=== PATIENT | male | born 1950 | race Caucasian/White ===

== ENCOUNTER 2017-12-28 10:56 | Outpatient (CLI) | payer OTHER, MEDICARE ==
--- NOTE | 2017-12-28 13:36 | RAD ---
KUB: INDICATION: History of nephrolithiasis. COMPARISON: Prior CT of the abdomen and pelvis dated 09/18/17. FINDINGS: There is a 4 mm stone overlying the mid aspect of the left kidney. There are tiny 1-2 mm stones over lying the mid to superior pole of the left kidney. There are expected 3 mm stones overlying the supe rior pole of the right kidney. No suspicious calcifications seen along the affected course of the re nal collecting systems. There are phleboliths within the lower pelvis. The bowel gas pattern is alicia bstructed. There is a mild amount of retained stool. There is scattered degenerative change. IMPRESSION: 1. Bilateral nephrolithiasis. There are 1-2 mm nonobstructing calculi involving the mid to superior aspect of the left kidney which appear new from the comparison CT. The other additional suspected n onobstructing calculi are likely stable to the CT exam. 2. Mild amount of retained stool. POS: [facility]
== END 2017-12-28 10:57 | disposition home or self-care (01) ==
LOC: RAD 10:56
PROVIDERS: ATTEND Urology
DX: N20.0 Calculus of kidney (principal); R19.5 Other fecal abnormalities
CPT/HCPCS: 74018

== ENCOUNTER 2018-04-25 19:20 | Emergency (ER) | payer OTHER, MEDICARE ==
[~2018-04-25 19:20] MED LIST: ISOVUE-370 76%-LOCM 1 ML ONE
[2018-04-25 20:00] LABS: #Eosinphils 0.1 thou/uL (0.0-0.7); #Monocytes 0.5 thou/uL (0.11-0.59); #Neutrophils 2.4 thou/uL (1.40-6.50); %Basophils 0.5 % (0.0-1.0); %Eosinophils 2.9 % (0.0-10.0); %Lymphocytes 38.6 % (21.0-51.0); %Monocytes 10.1 % (0.0-10.0); %Neutrophils 47.8 % (42.0-75.0); Hemoglobin 12.8 g/dL (14.0-18.0); Mean Corpuscular Volume 91.6 fL (78.0-98.0); Mean Platelet Volume 6.8 fL (7.4-10.4); Platelet Count 165 thou/uL (130-400); RBC Distribution Width 12.9 % (11.5-14.5); White Blood Cell (WBC) Count 5.1 thou/uL (4.8-10.8)
[2018-04-25 20:17] LABS: ALT (SGPT) 34 U/L (8-55); AST (SGOT) 32 U/L (5-34); Albumin 4.3 g/dL (3.4-4.8); Alkaline Phosphatase 70 U/L (40-150); Anion Gap 17 mmol/L (10-20); BUN (Urea Nitrogen) 23 mg/dL (8.4-25.7); Bilirubin, Total 0.5 mg/dL (0.2-1.2); CK (CPK) 367 U/L (30-200); Calc. Creatinine Clearance 0 mL/min (70-130); Calcium 9.2 mg/dL (7.8-10.44); Carbon Dioxide 19 mmol/L (23-31); Chloride 107 mmol/L (98-107); Estimated GFR-MDRD 37; Globulin 3.3 g/dL (2.4-3.5); Glucose 100 mg/dL (80-115); Lipase 47 U/L (8-78); Potassium 4.1 mmol/L (3.5-5.1); Protein, Total 7.6 g/dL (5.8-8.1); Sodium 139 mmol/L (136-145)
[2018-04-25 20:40] LABS: Bilirubin Negative (Negative); Blood, Urine Negative (Negative); Clarity CLEAR (Clear); Glucose, Urine (Dipstick) Negative (Negative); Leukocyte Negative (Negative); Nitrite Negative (Negative); Protein, Urine (Dipstick) Negative (Neg-Trace); Specific Gravity, Urine 1.023 (1.002-1.036)
[2018-04-25] MEDS ORDERED: Ketorolac Tromethamine 30 MG/ML VIAL ONE (21:38)
--- NOTE | 2018-04-25 23:05 | CT ---
CT ABDOMEN AND PELVIS WITH CONTRAST: CLINICAL HISTORY: Abdominal pain. COMPARISON: 09/18/2017 FINDINGS: There are atrophic kidneys bilaterally, with associated punctate calcifications, similar appearing. No adrenal mass. The liver and spleen are grossly unremarkable. No peripancreatic inflammation. Th ere is moderate retained fecal material of the colon. Colonic diverticulosis is present. The unopac ified bowel is otherwise limited in assessment. There is no pneumoperitoneum or ascites. Scattered vascular calcification is present. There are patchy subpleural opacities of the lungs bilaterally, i ncompletely evaluated. Moderate distention of the unopacified urinary bladder is seen. Stable calci fied phleboliths are present at the posterior aspect of the pelvis. There is osseous degenerative ch regine. IMPRESSION: 1. Constipation and colonic diverticulosis. 2. Atrophic kidneys bilaterally with associated multifocal punctate calcification, similar appearing . 3. Additional details are described above. POS: [facility]
== END 2018-04-26 00:31 | disposition home or self-care (01) ==
LOC: ERS 19:20
DX: R10.31 Right lower quadrant pain (principal); Z71.6 Tobacco abuse counseling; I10 Essential (primary) hypertension; F17.220 Nicotine dependence, chewing tobacco, uncomplicated; Z79.899 Other long term (current) drug therapy; Z79.82 Long term (current) use of aspirin
CPT/HCPCS: 74177; 80053; 81003; 82550; 83690; 85025; 96361; 96374; 99406; J1885

== ENCOUNTER 2018-12-10 09:01 | Outpatient (CLI) | payer MEDICARE, OTHER ==
--- NOTE | 2018-12-10 12:56 | MRI ---
MRI PELVIS WITH AND WITHOUT CONTRAST UTILIZING A PROSTATE CANCER SPECIFIC PROTOCOL: COMPARISON: No comparisons are available. TECHNIQUE: Multiplanar, multisequence MR images were obtained of the pelvis utilizing IV contrast with 17 mL of MultiHance. EXAM INTERPRETATION: The exam was interpreted on a separate in vivo 3D work station for a multiparametric evaluation. FINDINGS: The prostate gland measures 6.6 x 4.5 x 5.1 cm, giving an estimated prostatic volume of 73.91 mL. Th ere is a prominent amount of retained bowel gas that could not be evacuated from the rectal vault franc t produces some susceptibility artifact on the posterior aspect of the prostate gland. This limits i mage detail on the ADC and DWI images. No definite area of restricted diffusion is evident. On the T2 weighted images there is heterogeneous but predominantly hypointense, feathery signal abnormality seen within the peripheral zone of the prostate gland. No suspicious abnormality is seen within the central gland. The bladder is largely decompressed. The seminal vesicles appear within normal limit s. No pathologically enlarged lymph nodes are evident. There is no evidence to suggest neurovascula r invasion. There are fatty inguinal hernias bilaterally. No bone marrow signal abnormality is evid ent. IMPRESSION: PI-RADS category 2-Low (clinically significant cancer is unlikely to be present). POS: [facility]
[2018-12-10] MEDS ORDERED: Gadobenate Dimeglumine 529 MG/1 ML (20ML VIAL) ONE (13:47)
== END 2018-12-10 09:02 | disposition home or self-care (01) ==
LOC: TBSIIMAG 09:01
PROVIDERS: ATTEND Radiology Body Imaging
DX: R97.20 Elevated prostate specific antigen [PSA] (principal)
CPT/HCPCS: 72197; 82565; A9577

== ENCOUNTER 2018-12-13 10:32 | Outpatient (CLI) | payer MEDICARE, OTHER ==
--- NOTE | 2018-12-14 11:06 | ULT ---
ULTRASOUND PROSTATE: 12/13/2018 HISTORY: Elevated PSA. MRI of the prostate was already performed on 12/10/2018. A PI-RADS category 2 was giv en for that MRI. The purpose of this ultrasound is to obtain prostate volume. FINDINGS: The prostate gland measures approximately 3.7 x 5.5 x 2.6 cm, yielding an estimated volume of 27 mL. IMPRESSION: Prostate gland estimated volume of approximately 27 mL. POS: [facility]
== END 2018-12-13 10:33 | disposition home or self-care (01) ==
LOC: SCSULT 10:32
PROVIDERS: ATTEND Radiology Body Imaging
DX: C44.329 Squamous cell carcinoma of skin of other parts of face (principal); C30.0 Malignant neoplasm of nasal cavity; Z86.2 Personal history of diseases of the blood and blood-forming organs and certain disorders involving the immune mechanism
CPT/HCPCS: 76872

== ENCOUNTER 2019-02-10 08:57 | Day surgery (SDC) | payer MEDICARE, OTHER ==
[2019-02-09 12:53] VITALS: BMI 27.8
[2019-02-10] MEDS ORDERED: Ondansetron PF 4 MG/2 ML Vial ONE (09:52)
[2019-02-10] MEDS ORDERED: PHENYLEPHRINE-NS 100 MCG/ML 10 ML SYRINGE ONE (09:52)
[2019-02-10] MEDS ORDERED: Dexamethasone 20 MG/5 ML VIAL ONE (09:52)
[2019-02-10] MEDS ORDERED: Lidocaine 1% PF 5 ML VIAL ONE (09:52)
[2019-02-10] MEDS ORDERED: PROPOFOL 200 MG/20 ML VIAL ONE (09:52)
[2019-02-10] MEDS ORDERED: Oxymetazoline HCl 0.05% ( 15 ML ) ONE (10:14)
[2019-02-10] MEDS ORDERED: Silver Nitrate Application 1 EACH ONE ×2 (11:42→11:43)
[2019-02-10] MEDS ORDERED: Lidocaine 1% w/Epinephrine 1:100K 20 ML VIAL ONE (11:42)
[2019-02-10] MEDS ORDERED: Fentanyl 100 MCG/2 ML VIAL ONE (11:46)
--- NOTE | 2019-02-11 13:57 | OP ---
DATE OF PROCEDURE: 02/10/2019 PREOPERATIVE DIAGNOSES: 1. Epistaxis. 2. Intranasal adhesions. 3. Malignant lesion, left catholic. POSTOPERATIVE DIAGNOSES: 1. Epistaxis. 2. Intranasal adhesions. 3. Malignant lesion, left catholic. PROCEDURES PERFORMED: 1. Nasal endoscopy with control of bleeding. 2. Bilateral nasal endoscopy with lysis of adhesion. 3. Excision of left malignant facial skin lesion on the catholic measuring 4 cm with complex closure. DESCRIPTION OF PROCEDURE: After consent was obtained, the patient identified and brought to the operating room and placed on the operative table in supine position. Laryngeal mask anesthesia was obtained. The patient was positioned for surgery. The face was prepped and draped as was the nose for nasal surgery and facial surgery. We first turned our attention to the skin lesion of left catholic. An elliptical incision was made in the natural skin crease along the line of facial expression. The incision was carried out through the skin and subcutaneous tissues down to the SMAS layer with taking care to protect the facial nerve. Elliptical incision was made, and the specimen was sent for frozen section analysis. We were waited for frozen section analysis. We turned attention to the nose, where we underwent nasal endoscopy and multiple bleeding points were cauterized using silver nitrate and bipolar cautery. Large adhesions were taken down between the middle turbinate and the septum and the middle turbinate and inferior turbinates of the right, and inferior turbinate and septum of left. Absorbable packing was placed and local sponges were placed to keep it away from postop adhesions. We then obtained clear margins with our biopsy and proceeded with closure. The wound was undermined medially and laterally. The skin was advanced into the defect and closed in layers 5-0 Monocryl, reapproximating deep tissues and 6-0 Prolene for the skin. Sterile dressing applied over Steri-Strips. The patient was awakened, taken to recovery room in stable condition prior to discharge home. Job ID: [id number]
--- NOTE | 2019-03-04 05:50 | PQF ---
[facility] POST DISCHARGE CLINICAL DOCUMENTATION IMPROVEMENT CLARIFICATION FORM y Todays Date: 03/04/19 y Patients Name LEON ALEXANDER y y Admit Date 02/10/19 y Disch Date 02/10/19 Panel Instrument Repairer Name Farhat Lam Email: [email or web address] Cell: [phone] To be completed by Panel Instrument Repairer: Present Clinical Indicators - Signs / Symptoms Results and Location in Medical Record [ ] Documentation of: [ ] [ ] Documentation of: [ ] [ ] Documentation of: [ ] [ ] Documentation of: [ ] [ ] Risks [ ] [ ] [ ] Treatment [ ] Dermal fibrosis, chroni inflammation ans solar elastosis skin of left cheek Query for size of margins of excised lesion [ ] [ ] To be completed by Physician: DIEUDONNE ASHLEY The documentation in this patients record requires clarification to ensure coding compliance and accuracy. Check the appropriate box and include in your discharge summary. [ ] [ ] [ ] [ ] Please check this box if this does not apply to this patient [ ] Unable to determine [ ] Other diagnosis: Review the following information and exercise your independent professional judgment in responding to the clarification. Based upon the clinical findings, risk factors, and treatment, please clarify if you are treating one of the above probable or suspected diagnoses. Physician Signature: Date Time MTDD
== END 2019-02-10 14:52 | disposition home or self-care (01) ==
LOC: SDC 08:57
PROVIDERS: ATTEND Specialist
PROC: 093K8ZZ Control Bleeding in Nasal Mucosa and Soft Tissue, Via Natural or Artificial Opening Endoscopic (ICD-10-PCS; principal; 2019-02-10)
PROC: 0HB1XZZ Excision of Face Skin, External Approach (ICD-10-PCS; 2019-02-10)
DX: C76.0 Malignant neoplasm of head, face and neck (principal); R04.0 Epistaxis; Q61.9 Cystic kidney disease, unspecified; F17.220 Nicotine dependence, chewing tobacco, uncomplicated; Z79.82 Long term (current) use of aspirin; Z79.899 Other long term (current) drug therapy; Z88.8 Allergy status to other drugs, medicaments and biological substances; Z85.828 Personal history of other malignant neoplasm of skin; Z98.890 Other specified postprocedural states
CPT/HCPCS: 88305; 88331; 88332; J1100; J2001; J2405; J2704; J3010

== ENCOUNTER 2019-08-26 21:35 | Emergency (ER) | payer MEDICARE, OTHER | END 2019-08-27 00:04 | disposition home or self-care (01) | LOC: ERS 21:35 | DX: R04.0 Epistaxis (principal); I10 Essential (primary) hypertension; F17.220 Nicotine dependence, chewing tobacco, uncomplicated; Z79.899 Other long term (current) drug therapy; Z71.6 Tobacco abuse counseling; Z87.442 Personal history of urinary calculi; Z79.82 Long term (current) use of aspirin | CPT/HCPCS: 99406 ==

== ENCOUNTER 2019-12-06 12:34 | Outpatient (CLI) | payer MEDICARE, OTHER ==
--- NOTE | 2019-12-06 13:39 | ULT ---
BILATERAL RENAL ULTRASOUND: HISTORY: Parapelvic cyst. FINDINGS: The right kidney measures 9 cm in length and the left kidney measures 10 cm in length. Multiple left -sided parapelvic cysts are seen measuring up to 3 x 2.6 x 2.2 cm in the inferior aspect (which has t hin internal septation). The prevoid bladder volume is 278 cc. The urinary bladder is grossly unremarkable. No hydronephrosi s is seen on either side. IMPRESSION: Left parapelvic cysts. POS: [facility]
== END 2019-12-06 12:35 | disposition home or self-care (01) ==
LOC: BICULT 12:34
PROVIDERS: ATTEND Urology
DX: N28.1 Cyst of kidney, acquired (principal)
CPT/HCPCS: 76770

== ENCOUNTER 2020-03-26 18:01 | Observation (INO) | payer MEDICARE, OTHER ==
[2020-03-26 18:37] LABS: #Eosinphils 0.1 thou/uL (0.0-0.7); #Lymphocytes 1.4 thou/uL (1.20-3.40); #Monocytes 0.4 thou/uL (0.11-0.59); #Neutrophils 3.6 thou/uL (1.40-6.50); %Basophils 0.6 % (0.0-1.0); %Eosinophils 2.1 % (0.0-10.0); %Lymphocytes 24.5 % (21.0-51.0); %Monocytes 7.5 % (0.0-10.0); %Neutrophils 65.3 % (42.0-75.0); Hemoglobin 10.2 g/dL (14.0-18.0); Mean Corpuscular HGB CONC 33.4 g/dL (32.0-36.0); Mean Corpuscular Hemoglobin 31.4 pg (27.0-31.0); Mean Corpuscular Volume 93.9 fL (78.0-98.0); Mean Platelet Volume 6.8 fL (7.4-10.4); Platelet Count 153 thou/uL (130-400); RBC Distribution Width 12.9 % (11.5-14.5); Red Blood Cell (RBC) Count 3.24 mill/uL (4.70-6.10); White Blood Cell (WBC) Count 5.5 thou/uL (4.8-10.8)
--- NOTE | 2020-03-26 18:45 | RAD ---
Chest AP view INDICATION: Chest pain COMPARISON: February 05, 2019 FINDINGS: Lungs: The lungs are clear Cardiac silhouette: The cardiomediastinal silhouette appears within normal limits. Pulmonary vasculature: Normal Pleural spaces: No pleural effusion or pneumothorax is demonstrated. Upper abdomen: No abnormality seen. Osseous structures: No acute osseous abnormality. Additional findings: None. IMPRESSION: No acute cardiopulmonary abnormality.
[2020-03-26 19:01] LABS: ALT (SGPT) 33 U/L (8-55); AST (SGOT) 56 U/L (5-34); Albumin 3.8 g/dL (3.4-4.8); Alkaline Phosphatase 68 U/L (40-110); Anion Gap 11 mmol/L (10-20); BUN (Urea Nitrogen) 24 mg/dL (8.4-25.7); Bilirubin, Total 0.4 mg/dL (0.2-1.2); CK (CPK) 212 U/L (30-200); Calc. Creatinine Clearance 0 mL/min (70-130); Calcium 8.5 mg/dL (7.8-10.44); Carbon Dioxide 24 mmol/L (23-31); Chloride 107 mmol/L (98-107); Estimated GFR-MDRD 34; Globulin 2.5 g/dL (2.4-3.5); Glucose 92 mg/dL (80-115); Lipase 41 U/L (8-78); Potassium 4.3 mmol/L (3.5-5.1); Protein, Total 6.3 g/dL (5.8-8.1); Sodium 138 mmol/L (136-145)
[2020-03-26] MEDS ORDERED: Nitroglycerin 0.4 MG TAB (25 Tab Bottle) PO PRN (20:27)
[2020-03-26] MEDS ORDERED: Morphine 2 MG/ML VIAL SLOW IVP PRN (20:31)
[2020-03-26] MEDS ORDERED: Senokot S 8.6-50 MG TAB PO PRN (20:32)
[2020-03-26] MEDS ORDERED: Acetaminophen 325 MG TAB PO PRN (20:32)
[2020-03-26] MEDS ORDERED: Calcium Carbonate 500 MG ChewTAB PO PRN (20:32)
[2020-03-26] MEDS ORDERED: Rosuvastatin 20 MG TAB PO SCH (21:00)
[2020-03-26] MEDS ORDERED: Fentanyl 100 MCG/2 ML VIAL ONE (21:19)
--- NOTE | 2020-03-26 21:32 | HP ---
PRIMARY CARE PHYSICIAN: Vito Tang DO CHIEF COMPLAINT: Chest pain. HISTORY OF PRESENT ILLNESS: The patient is a 69-year-old male with past medical history significant for hypertension, hyperlipidemia, chronic anemia, and GERD, who presents to the ER for the above complaint. The patient reports that while gardening in his yard, there was sudden onset of acute chest pain around 3:00 p.m. He describes the pain as located on the left side radiating to his left upper arm. Pain was sharp. It was constant, it was 8/10. It was exacerbated with exertion and relieved by nothing. The patient has some mild associated shortness of breath. He denies any heart palpitations, recent fever or chills. He denies any history of DVT or PE. He has no history of COPD or asthma. He does not use any illicit drugs. He denies any abdominal pain, nausea, vomiting, or diarrhea. The patient thought that it might be indigestion, so he went and laid down. He ate a ham sandwich at noon. The pain got worse. He took 3 sublingual nitroglycerin and aspirin 81 mg x4. EMS gave him morphine and Zofran and his chest pain resolved. In the ER, the patient was afebrile. He was hypertensive 166/71, normal pulse, normal respirations, 100% on room air. EKG was normal sinus rhythm 67 beats per minute. No ST elevations. Chest x-ray negative for any acute process. Troponin was 0.010. CK was 212. His BUN was 24, creatinine was 1.97. The patient will be admitted to the floor for further evaluation. PAST MEDICAL HISTORY: 1. Hypertension. 2. Hyperlipidemia. 3. Chronic anemia. 4. GERD. 5. Spinal stenosis, L4-L5. 6. Kidney stones. PAST SURGICAL HISTORY: 1. Sinus surgery. 2. EGD. 3. Colonoscopy. SOCIAL HISTORY: The patient lives with his family in [place]. He chews tobacco approximately one pouch per day since he was a child. No smoking history. No illicit drug use. No alcohol intake. He ambulates without any assistive devices. FAMILY HISTORY: 1. Noncontributory for cardiac. 2. Contributory for cancer. ALLERGIES: NO KNOWN DRUG ALLERGIES. HOME MEDICATIONS: 1. Amlodipine 10 mg p.o. daily. 2. Aspirin 81 mg p.o. daily. 3. Rosuvastatin 20 mg p.o. daily. 4. Omeprazole 20 mg p.o. daily. 5. Oxybutynin 10 mg p.o. daily. 6. Iron tablet 27 mg p.o. daily. REVIEW OF SYSTEMS: All review of systems are negative unless otherwise stated in the HPI. PHYSICAL EXAMINATION: VITAL SIGNS: Temperature 98.4, blood pressure 166/71, heart rate 66, respirations 14, 100% on room air, 0/10 pain. CONSTITUTIONAL: The patient is alert and oriented to person, place, and time, in no acute distress. He is comfortable lying in bed. Reports chest pain has resolved. HEAD: Atraumatic and normocephalic. EYES: PERRLA. Extraocular muscles intact. ENT: Oropharynx clear. Uvula midline. Moist mucous membranes. No oral lesions. NECK: Supple. Trachea midline. No JVD. No cervical adenopathy. Full range of motion. No cervical spinous tenderness. RESPIRATORY/CHEST: Respirations even and unlabored. Clear to auscultation. No rhonchi, wheezes, or rales. CARDIOVASCULAR: S1 and S2 appreciated. Regular rate and rhythm. No murmurs, rubs, or gallops. ABDOMEN: Soft, nontender. Active bowel sounds. No abdominal bruit. No guarding. No rigidity. No rebound tenderness. Negative Rovsing sign. Negative Martinez sign. BACK: Full range of motion. No central spinous tenderness. No CVA tenderness. EXTREMITIES: Upper extremities, full range of motion. Strength intact. Sensation normal. Palpable radial pulses. Lower extremities, full range of motion. Strength intact. Sensation intact. Palpable pedal pulses. No swelling. NEUROLOGIC: The patient is alert and oriented to person, place, and time. Follows commands. Moves all extremities. No focal deficits. Normal gait. PSYCHIATRIC: The patient is alert and oriented to person, place, and time with normal affect. LABORATORY DATA AND DIAGNOSTICS: EKG, normal sinus rhythm. Chest x-ray, negative for any acute process. Troponin 0.010. CK of 212. Sodium 138, potassium 4.3, chloride 107, CO2 of 24, BUN 24, creatinine 1.97, glucose 92, total bilirubin 0.4, AST 56, ALT 33, alkaline phosphatase 68, albumin 3.8. WBC 5.5, hemoglobin 10.2, hematocrit 30.5, platelets 153. IMPRESSION AND PLAN: 1. Chest pain. We will admit the patient to the telemetry floor observation status. Expected length of stay less than 2 midnights. The patient presented with a HEART score of 5. He has been given full dose aspirin. At this time, his chest pain has been resolved. We will continue to trend troponins. We will check a BNP, TSH, and magnesium level. We will continue aspirin, nitroglycerin, and morphine. Order echo and cardiac stress test. Will be n.p.o. after midnight. 2. Acute kidney injury, mild. The patient's baseline appears to be 1.7. We will give gentle IV fluid hydration. We will recheck level in the a.m. 3. Hypertension. The patient presented hypertensive with a blood pressure 166/ 71. We will restart the patient's home medications when reconciled by nursing. 4. Hyperlipidemia. The patient does take rosuvastatin. We will restart rosuvastatin this evening and we will check a fasting lipid profile in the a.m. 5. Gastroesophageal reflux disease. The patient takes omeprazole at home. We will start Protonix for gastrointestinal prophylaxis. 6. Tobacco abuse. The patient dips one pouch a day of chewing tobacco since he was a child. We will relationship counselor on tobacco cessation. 7. SCDs for deep venous thrombosis prophylaxis. Protonix for gastrointestinal prophylaxis. 8. The patient is a full code. TOMMIE is his daughter, Iris, #[phone]. 9. Discussed the case with Dr. Davison. Job ID: [id number] MTDD
[2020-03-26] MEDS ORDERED: Nitroglycerin 2% Ointment 1 INCH/1 GM Packet TOP SCH (22:00)
[2020-03-26 22:06] LABS: Troponin I 0.017 ng/mL (< 0.028)
[2020-03-26] MEDS: Sodium Chloride 0.9% 1,000 ML IV SCH (22:45)
[2020-03-26 22:50] VITALS: BMI 26.4
[2020-03-27 01:14] LABS: Troponin I Less than 0.010 ng/mL (< 0.028)
[2020-03-27 04:18] LABS: #Eosinphils 0.1 thou/uL (0.0-0.7); #Lymphocytes 1.2 thou/uL (1.20-3.40); #Monocytes 0.3 thou/uL (0.11-0.59); #Neutrophils 2.8 thou/uL (1.40-6.50); %Basophils 0.3 % (0.0-1.0); %Lymphocytes 26.7 % (21.0-51.0); %Monocytes 7.1 % (0.0-10.0); %Neutrophils 62.8 % (42.0-75.0); Hemoglobin 10.3 g/dL (14.0-18.0); Mean Corpuscular HGB CONC 33.6 g/dL (32.0-36.0); Mean Corpuscular Hemoglobin 31.7 pg (27.0-31.0); Mean Corpuscular Volume 94.6 fL (78.0-98.0); Mean Platelet Volume 6.8 fL (7.4-10.4); Platelet Count 131 thou/uL (130-400); Red Blood Cell (RBC) Count 3.25 mill/uL (4.70-6.10); White Blood Cell (WBC) Count 4.5 thou/uL (4.8-10.8)
[2020-03-27 04:44] LABS: Anion Gap 11 mmol/L (10-20); BUN (Urea Nitrogen) 23 mg/dL (8.4-25.7); Calc. Creatinine Clearance 43 mL/min (70-130); Calcium 8.4 mg/dL (7.8-10.44); Carbon Dioxide 25 mmol/L (23-31); Cardiac Risk 4.2 (Less than 4.5); Chloride 110 mmol/L (98-107); Cholesterol 144 mg/dl (< 200 Desired); Estimated GFR-MDRD 36; Glucose 93 mg/dL (80-115); HDL Cholesterol 34 mg/dL (>60 Neg Risk); LDL Cholesterol, Calculated 83 mg/dL; Potassium 4.5 mmol/L (3.5-5.1); Sodium 141 mmol/L (136-145); Triglycerides 136 mg/dL (Less than 150)
[2020-03-27 06:16] LABS: Bacteria/HPF None Seen HPF (None Seen); Bilirubin Negative (Negative); Blood, Urine Negative (Negative); Clarity Clear (Clear); Glucose, Urine (Dipstick) Normal (Negative); Ketone, Urine Negative (Negative); Leukocyte Negative Leu/uL (Negative); Nitrite Negative (Negative); Protein, Urine (Dipstick) Negative (Neg-Trace); RBC/HPF 0-3 HPF (0-3); Specific Gravity, Urine 1.018 (1.002-1.036); Squamous Epithelial None Seen HPF (0-3); Urobilinogen Normal mg/dL (Less than 2); WBC/HPF 0-3 HPF (0-3); pH, Urine 6.5 (5.0-9.0)
[2020-03-27] MEDS ORDERED: Aspirin 81 mg Enteric Coated Tablet PO SCH (09:00)
[2020-03-27] MEDS ORDERED: Prevnar 13-Val Conj/PF 0.5 ML SYRINGE IM ONE (09:00)
[2020-03-27] MEDS: Sodium Chloride 0.9% 1,000 ML IV SCH (09:00)
[2020-03-27] MEDS ORDERED: ADENOSINE 60 MG/20 ML VIAL ONE (10:07)
[2020-03-27 13:11] VITALS: BP 131/73; TEMP 97.4
--- NOTE | 2020-03-27 13:58 | NM ---
Radionucleotide stress and rest myocardial perfusion scan with CT attenuation correction and SPECT im aging Left ventricular wall motion evaluation and ejection fraction HISTORY: Chest pain. FINDINGS: Adenosine protocol. There is homogeneous uptake of radiotracer throughout the left ventricu lar myocardium. No focal perfusion defect or reversibility evident. QGS analysis of gated SPECT images shows no focal wall motion abnormality. Ejection fraction calculat ed at 64%. IMPRESSION : No evidence of ischemia. Normal LVEF.
--- NOTE | 2020-03-27 14:26 | DIS ---
DATE OF ADMISSION: 03/26/2020 DATE OF DISCHARGE: 03/27/2020 DISCHARGE DISPOSITION: To home. PRIMARY DISCHARGE DIAGNOSIS: Chest pain, which is noncardiac. SECONDARY DISCHARGE DIAGNOSES: Hypertension, dyslipidemia, chronic anemia, gastroesophageal reflux disease, spinal stenosis. PROCEDURES DONE DURING HOSPITALIZATION: The patient has had chest x-ray done which showed no acute cardiopulmonary abnormality. Nuclear stress test done showed no evidence of ischemia with normal ejection fraction of 64%. There was no focal perfusion defect or reversibility seen. No focal wall motion abnormality was seen. Echo with 2D Doppler showed an ejection fraction of 50% to 55%. There was diastolic dysfunction and moderate mitral regurgitation. Troponin x2 negative. BUN was 24, creatinine 1.9 on admission. Total cholesterol 144, triglycerides 136, LDL 83, HDL 34. DISCHARGE MEDICATIONS: 1. Norvasc 10 mg p.o. daily. 2. Aspirin 81 mg p.o. daily. 3. Vitamin D3 1000 units p.o. daily. 4. Vitamin B12 1000 mcg p.o. daily. 5. Ferrous sulfate 65 mg p.o. at bedtime. 6. Folic acid 1 mg p.o. at bedtime. 7. Omeprazole 20 mg p.o. daily. 8. Oxybutynin extended release 10 mg p.o. at bedtime. 9. Potassium citrate 10 mEq p.o. twice daily. 10. Pramipexole 0.125 mg p.o. daily. 11. Crestor 20 mg p.o. at bedtime. ALLERGIES: ALLERGIC TO GABAPENTIN. DISCHARGE PLAN: The patient is to follow up with Dr. Vito Tang in 1 week. BRIEF COURSE DURING HOSPITALIZATION: The patient initially came in with complaints of chest pain which was left-sided. He was placed under observation on telemetry due to multiple risk factors for coronary artery disease. Two sets of troponin done, which were negative. EKG did not reveal any acute ST-T wave changes. He has had a nuclear stress test done which showed no reversible ischemia. Echo showed good ejection fraction with diastolic dysfunction. He was incidentally found to have had moderate mitral regurgitation. He has remained hemodynamically stable, ambulating and eating well prior to discharge. Please note I have seen and examined the patient on the day of discharge. Job ID: [id number]
== END 2020-03-27 15:31 | disposition home or self-care (01) ==
LOC: ERS 18:01 → 2NO 20:17
PROVIDERS: ADMIT Internal Medicine; ATTEND Internal Medicine
DX: R07.89 Other chest pain (principal); I10 Essential (primary) hypertension; E78.5 Hyperlipidemia, unspecified; D64.9 Anemia, unspecified; K21.9 Gastro-esophageal reflux disease without esophagitis; M48.061 Spinal stenosis, lumbar region without neurogenic claudication; F17.220 Nicotine dependence, chewing tobacco, uncomplicated; N17.9 Acute kidney failure, unspecified; Z79.82 Long term (current) use of aspirin; Z79.899 Other long term (current) drug therapy; Z88.8 Allergy status to other drugs, medicaments and biological substances
CPT/HCPCS: 71045; 78452; 80048; 80061; 81001; 82550; 83690; 83735; 83880; 84484 ×3; 85025; 93005; 93017; 93306; 94760 ×2; 96360; 96361 ×2; 97139; 99285; A9500; G0378 ×3; 36415; 80053; 84443; J0153; J3010

== ENCOUNTER 2020-05-18 15:19 | Inpatient (IN) | payer MEDICARE, OTHER ==
[2020-05-18 16:15] LABS: Bacteria/HPF None Seen HPF (None Seen); Bilirubin Negative (Negative); Blood, Urine Trace (Negative); Clarity Clear (Clear); Glucose, Urine (Dipstick) Normal (Negative); Ketone, Urine Negative (Negative); Leukocyte Negative Leu/uL (Negative); Nitrite Negative (Negative); Protein, Urine (Dipstick) 30 mg/dL (Neg-Trace); RBC/HPF 0-3 HPF (0-3); Specific Gravity, Urine 1.024 (1.002-1.036); Squamous Epithelial 0-3 HPF (0-3); Urobilinogen Normal mg/dL (Less than 2); WBC/HPF 0-3 HPF (0-3); pH, Urine 5.5 (5.0-9.0)
[2020-05-18 17:16] LABS: SARS-CoV-2 NAA Rapid Test DETECTED (NotDetected)
[2020-05-18] MEDS ORDERED: Acetaminophen 325 MG TAB PO PRN ×2 (21:43→22:07)
[2020-05-18] MEDS ORDERED: cefTRIAXone\\ROCEPHIN 2 GM in Sodium Chloride 0.9% 100 ML IVPB SCH (22:00)
[2020-05-18] MEDS ORDERED: Ondansetron PF 4 MG/2 ML Vial IVP PRN (22:07)
[2020-05-18] MEDS ORDERED: HYDROcodone/Acetaminophen 5/325 mg Tablet PO PRN (22:07)
[2020-05-18] MEDS ORDERED: Guaifenesin DM 100-10/5 ML UDCUP PO PRN (22:07)
[2020-05-18] MEDS ORDERED: cloNIDine 0.1 MG TAB PO PRN (22:07)
[2020-05-18] MEDS ORDERED: hydrALAZINE 20 MG/ML VIAL SLOW IVP PRN (22:07)
[2020-05-18] MEDS ORDERED: Promethazine HCl 12.5 MG in Sodium Chloride 0.9% 50 ML IVPB PRN (22:07)
[2020-05-18] MEDS ORDERED: Azithromycin 500 MG in Syringe 0 ML IVPB SCH (22:15)
[2020-05-18] MEDS ORDERED: Electrolyte Replacement Protoc 1 EACH EACH FS PRN (22:15)
--- NOTE | 2020-05-18 22:17 | PDOC.HHP ---
Hospitalist HPI - History of Present Illness Chills History of Present Illness: Patient is a 69 year old male with PMH prostate cancer, CAD, HTN, SCC of face, spinal stenosis, kidney stones who presents as transfer from [place] for chills, malaise, abnormal lung imaging. He reports symptoms which started today , including chills, fatigue, malaise, a burning sensation in his stomach, nausea , vomiting. Denies chest pain, shortness of breath, fevers at home. He presented to [place], where CT imaging concerning for covid multifocal pneumonia, given antibiotics and transferred here, NILO COVID test here positive , patient admitted for COVID 19 pneumonia. He is calm on RA in no distress, wants to get back to doing yardwork as soon as possible. Hospitalist ROS - Review of Systems Constitutional: reports: fever, chills, sweats, weakness, malaise Eyes: denies: pain, vision change, conjunctivae inflammation, eyelid inflammation, redness, other ENT: denies: ear pain, ear discharge, nose pain, nose discharge, nose congestion , mouth pain, mouth swelling, throat pain, throat swelling, other Respiratory: denies: cough, dry, shortness of breath, hemoptysis, SOB with excertion, pleuritic pain, sputum, wheezing, other Cardiovascular: denies: chest pain, palpitations, orthopnea, paroxysmal noc. dyspnea, edema, light headedness, other Gastrointestinal: reports: nausea, vomiting. denies: abdominal pain, diarrhea, constipation, melena, hematochezia, other Genitourinary: denies: dysuria, frequency, incontinence, hematuria, retention, other Musculoskeletal: denies: neck pain, shoulder pain, arm pain, back pain, hand pain, leg pain, foot pain, other Skin: denies: rash, lesions, jenelle, bruising, other Neurological: denies: weakness, numbness, incoordination, change in speech, confusion, seizures, other All other systems reviewed; all pertinent +/- noted in HPI/Subj - Medication Medications: vitamin B complex-vit B12 DROPS : Strength - 1,200 mcg/mL : SUBLINGUAL Patient Dose: 1 tab(s) Oral once a day. amLODIPine TABLET : Strength - 10 mg : ORAL Patient Dose: 10 mg Oral once a day. omeprazole CAPSULE,DELAYED RELEASE (ENTERIC COATED) : Strength - 20 mg : ORAL Patient Dose: 20 mg Oral once a day. aspirin oral TABLET : Strength - 81 mg : ORAL Patient Dose: 81 mg Oral once a day. iron 27 mg iron tablet TABLET : Strength - 27 mg iron : ORAL Patient Dose: 27 mg Oral once a day. folic acid oral tablet : Strength - 1 mg : ORAL Patient Dose: 1 mg Oral. oxybutynin chloride tablet extended release 24hr : Strength - 10 mg : ORAL Patient Dose: 10 mg Oral. rosuvastatin tablet : Strength - 20 mg : ORAL Patient Dose: 20 mg Oral. potassium citrate tablet extended release : Strength - 10 mEq (1,080 mg) : ORAL Patient Dose: unk mg Oral. pramipexole tablet : Strength - 0.125 mg : ORAL Patient Dose: .125 mg Oral. Hospitalist History - Past Medical History Other Medical History: prostate cancer, CAD, HTN, SCC of face, spinal stenosis, kidney stones - Past Surgical History Other Surgical History: SINUS SURGERY FOR CA, SKIN CANCER REMOVAL, EGD, COLONOSCOPY, biopsy to check for prostate CA. - Family History Family History: reports: no pertinent history - Social History Tobacco Type: chewing tobacco Alcohol: reports: None Drugs: reports: none - Exam General Appearance: NAD, awake alert Eye: PERRL, anicteric sclera ENT: normocephalic atraumatic, no oropharyngeal lesions, moist mucosa Neck: supple, symmetric, no JVD, no thyromegaly, no lymphadenopathy, no carotid bruit Heart: RRR, no murmur, no gallops, no rubs, normal peripheral pulses Respiratory: CTAB, no wheezes, no rales, no ronchi, normal chest expansion, no tachypnea, normal percussion Gastrointestinal: soft, non-tender, non-distended, normal bowel sounds, no palpable masses, no hepatomegaly, no splenomegaly, no bruit Extremities: no cyanosis, no clubbing, no edema Skin: normal turgor, no lesions, no rashes Neurological: cranial nerve grossly intact, normal sensation to touch, no weakness, no focal deficits, no new deficit Musculoskeletal: normal tone, normal strength, no muscle wasting Psychiatric: normal affect, normal behavior, A&O x 3 Hospitalist Results - Labs Lab results: Troponin I 0.014 ng/mL (< 0.028) 05/18/20 16:11 Urine Ketones Negative mg/dL (Negative) 05/18/20 15:50 Urine Blood Trace (Negative) A 05/18/20 15:50 Urine Nitrite Negative (Negative) 05/18/20 15:50 Ur Leukocyte Esterase Negative Tessie/uL (Negative) 05/18/20 15:50 Urine RBC 0-3 HPF (0-3) 05/18/20 15:50 Urine WBC 0-3 HPF (0-3) 05/18/20 15:50 Ur Squamous Epith Cells 0-3 HPF (0-3) 05/18/20 15:50 Urine Bacteria None Seen HPF (None Seen) 05/18/20 15:50 Additional comment: VITAL SIGNS ThuMay 18, 2020 18:00 NORMA Coronado, [facility] BP: 120/87 Pulse: 78 Resp: 16 Temp: 99.9 (Oral) Pain: 0 O2 sat: 96 on (Room Air) Time: 05/18/2020 18:00. outside hospital and this hospital labs, imaging, ED notes reviewed Hospitalist H&P A/P - Plan Plan: Patient is a 69 year old male with PMH prostate cancer, CAD, HTN, SCC of face, spinal stenosis, kidney stones who presents as transfer from [place] for chills, malaise, abnormal lung imaging. # COVID 19 infection w/ multifocal pneumonia - admit to floor, covid precautions - start decadron, continue antibiotics empirically - precautions # HTN # CAD # SCC of face - recommend continued outpatient management # DVT/GI ppx full code
[2020-05-19] MEDS: Dexamethasone 4 mg/ml Vial SLOW IVP SCH ×2 (00:16→23:06)
[2020-05-19 05:44] LABS: #Lymphocytes 0.5 thou/uL (1.20-3.40); #Monocytes 0.2 thou/uL (0.11-0.59); #Neutrophils 2.8 thou/uL (1.40-6.50); %Basophils 0.8 % (0.0-1.0); %Eosinophils 0.1 % (0.0-10.0); %Lymphocytes 15.2 % (21.0-51.0); %Monocytes 4.2 % (0.0-10.0); %Neutrophils 79.7 % (42.0-75.0); Mean Corpuscular HGB CONC 32.6 g/dL (32.0-36.0); Mean Corpuscular Hemoglobin 30.6 pg (27.0-31.0); Mean Platelet Volume 7.4 fL (7.4-10.4); Platelet Count 131 thou/uL (130-400); RBC Distribution Width 12.3 % (11.5-14.5); White Blood Cell (WBC) Count 3.6 thou/uL (4.8-10.8)
[2020-05-19 06:20] LABS: Anion Gap 15 mmol/L (10-20); BUN (Urea Nitrogen) 31 mg/dL (8.4-25.7); Calc. Creatinine Clearance 0 mL/min (70-130); Calcium 8.2 mg/dL (7.8-10.44); Carbon Dioxide 20 mmol/L (23-31); Chloride 103 mmol/L (98-107); Estimated GFR-MDRD 33; Glucose 119 mg/dL (80-115); Magnesium 2.1 mg/dL (1.6-2.6); Potassium 4.7 mmol/L (3.5-5.1); Sodium 133 mmol/L (136-145)
[2020-05-19 06:46] VITALS: BMI 24.4
[2020-05-19] MEDS ORDERED: Famotidine 20 MG TAB PO SCH (09:00)
[2020-05-19] MEDS: Aspirin Chewable 81 MG TAB PO SCH (10:29)
[2020-05-19] MEDS: Enoxaparin Sodium 40 MG/0.4 ML SYRINGE SC SCH (10:29)
[2020-05-19] MEDS: Polyethylene Glycol 3350 17 GM Packet PO SCH (10:29)
[2020-05-19] MEDS: Pramipexole Di-HCl 0.125 MG TAB PO SCH (10:29)
[2020-05-19] MEDS: Azithromycin 500 MG in Sodium Chloride 0.9% 250 ML 250 ML IVPB SCH (12:05)
[2020-05-19] MEDS: cefTRIAXone\\ROCEPHIN 1 GM in Sodium Chloride 0.9% 100 ML IVPB SCH (14:17)
--- NOTE | 2020-05-19 16:24 | PDOC.HOSPP ---
- Subjective Encounter Date: 05/19/20 Encounter Time: 16:23 Subjective: Mr. Kumar was seen today in follow-up of COVID infection and pneumonia. He says he feels much better this afternoon, after his fever broke. He is not using any oxygen. He denies feeling short of breath. He admits to a little soreness in the left side of his chest when he breathes. - Objective Vital Signs & Weight: Vital Signs (12 hours) Temp Pulse Resp BP Pulse Ox 05/19/20 12:26 98.3 F 78 18 114/68 93 L 05/19/20 08:18 98.5 F 85 18 114/70 96 05/19/20 08:00 96 Weight Weight 180 lb I&O: 05/18/20 05/19/20 05/20/20 06:59 06:59 06:59 Intake Total 320 Balance 320 Result Diagrams: 05/19/20 05:21 05/19/20 05:21 Hospitalist ROS - Medication Medications: Active Medications Generic Name Dose Route Start Last Admin Trade Name Choco PRN Reason Stop Dose Admin Aspirin 81 mg 05/19/20 09:00 05/19/20 10:29 Aspirin Chewable PO 81 mg DAILY VASQUEZ Administration Dexamethasone 6 mg 05/18/20 23:00 05/19/20 00:16 Decadron SLOW IVP 6 mg Q24H VASQUEZ Administration Enoxaparin Sodium 40 mg 05/19/20 09:00 05/19/20 10:29 Lovenox SC 40 mg 0900 VASQUEZ Administration Ceftriaxone Sodium 1 gm/ 100 mls @ 200 mls/hr 05/19/20 13:00 05/19/20 14:17 Sodium Chloride IVPB 100 mls 1300 VASQUEZ Administration Azithromycin 500 mg/ Sodium 250 mls @ 250 mls/hr 05/19/20 12:00 05/19/20 12: 05 Chloride IVPB 250 mls 1200 VASQUEZ Administration Polyethylene Glycol 17 gm 05/19/20 09:00 05/19/20 10:29 Miralax PO 17 gm DAILY VASQUEZ Administration Pramipexole Dihydrochloride 0.125 mg 05/19/20 09:00 05/19/20 10:29 Mirapex PO 0.125 mg DAILY VASQUEZ Administration - Exam Eye: PERRL, anicteric sclera Heart: RRR, no murmur, no gallops, no rubs, normal peripheral pulses Respiratory: no wheezes, no ronchi, rales (+ rales in the left ,mid lung zone) Gastrointestinal: soft, non-tender, non-distended, normal bowel sounds, no palpable masses, no hepatomegaly Extremities: no cyanosis, no edema (good distal pulses bilaterally, no lesions) Hosp A/P (1) COVID-19 virus infection Code(s): U07.1 - COVID-19 Status: Acute (2) Left upper lobe pneumonia Code(s): J18.9 - PNEUMONIA, UNSPECIFIED ORGANISM Status: Acute (3) Hypertension Code(s): I10 - ESSENTIAL (PRIMARY) HYPERTENSION Status: Chronic (4) CAD (coronary artery disease) Code(s): I25.10 - ATHSCL HEART DISEASE OF [place] CORONARY ARTERY W/O ANG PCTRS Status: Chronic - Plan * COVID infection with pneumonia- continue Decadron IV * Continue empiric antibiotics- ( as the distribution of changes on X-ray are not typical of COVID * HTN- blood pressure is stable * CAD- stable
[2020-05-19] MEDS ORDERED: Amlodipine 10 MG TAB PO SCH (21:00)
[2020-05-19] MEDS ORDERED: Oxybutynin 5 MG TAB PO SCH (21:00)
[2020-05-19] MEDS ORDERED: Rosuvastatin 20 MG TAB PO SCH (21:00)
[2020-05-20 06:03] LABS: #Basophils 0.1 thou/uL (0.0-0.2); #Eosinphils 0.1 thou/uL (0.0-0.7); #Lymphocytes 0.7 thou/uL (1.20-3.40); #Monocytes 0.3 thou/uL (0.11-0.59); #Neutrophils 3.9 thou/uL (1.40-6.50); %Basophils 1.3 % (0.0-1.0); %Eosinophils 1.3 % (0.0-10.0); %Lymphocytes 13.2 % (21.0-51.0); %Monocytes 5.2 % (0.0-10.0); Hemoglobin 11.2 g/dL (14.0-18.0); Mean Corpuscular HGB CONC 33.6 g/dL (32.0-36.0); Mean Corpuscular Hemoglobin 32.2 pg (27.0-31.0); Mean Corpuscular Volume 95.8 fL (78.0-98.0); Mean Platelet Volume 7.4 fL (7.4-10.4); Platelet Count 123 thou/uL (130-400); RBC Distribution Width 12.2 % (11.5-14.5); Red Blood Cell (RBC) Count 3.47 mill/uL (4.70-6.10); White Blood Cell (WBC) Count 4.9 thou/uL (4.8-10.8)
[2020-05-20 06:19] LABS: Anion Gap 13 mmol/L (10-20); BUN (Urea Nitrogen) 34 mg/dL (8.4-25.7); Calc. Creatinine Clearance 42 mL/min (70-130); Calcium 8.3 mg/dL (7.8-10.44); Carbon Dioxide 22 mmol/L (23-31); Chloride 105 mmol/L (98-107); Estimated GFR-MDRD 35; Glucose 131 mg/dL (80-115); Magnesium 2.3 mg/dL (1.6-2.6); Potassium 4.9 mmol/L (3.5-5.1); Sodium 135 mmol/L (136-145)
[2020-05-20] MEDS ORDERED: Famotidine 20 MG TAB PO SCH (09:00)
[2020-05-20] MEDS: Polyethylene Glycol 3350 17 GM Packet PO SCH (09:59)
[2020-05-20] MEDS: Enoxaparin Sodium 40 MG/0.4 ML SYRINGE SC SCH (09:59)
[2020-05-20] MEDS: Aspirin Chewable 81 MG TAB PO SCH (09:59)
[2020-05-20] MEDS: Pramipexole Di-HCl 0.125 MG TAB PO SCH (09:59)
[2020-05-20] MEDS: Azithromycin 500 MG in Sodium Chloride 0.9% 250 ML 250 ML IVPB SCH (12:16)
[2020-05-20] MEDS: cefTRIAXone\\ROCEPHIN 1 GM in Sodium Chloride 0.9% 100 ML IVPB SCH (14:31)
--- NOTE | 2020-05-20 15:50 | PDOC.HOSPP ---
- Subjective Encounter Date: 05/20/20 Encounter Time: 15:48 Subjective: Mr. Kumar was seen today in follow-up of COVID pneumonia. He says he feels fine. No complaints. - Objective Vital Signs & Weight: Vital Signs (12 hours) Temp Pulse Resp BP Pulse Ox 05/20/20 08:00 97.7 F 78 18 110/68 97 Weight Weight 180 lb I&O: 05/19/20 05/20/20 05/21/20 06:59 06:59 06:59 Intake Total 1989 670 Balance 1989 670 Result Diagrams: 05/20/20 05:28 05/20/20 05:28 Hospitalist ROS - Medication Medications: Active Medications Generic Name Dose Route Start Last Admin Trade Name Freq PRN Reason Stop Dose Admin Amlodipine Besylate 10 mg 05/19/20 21:00 05/19/20 21:41 Norvasc PO 10 mg HS VASQUEZ Administration Aspirin 81 mg 05/19/20 09:00 05/20/20 09:59 Aspirin Chewable PO 81 mg DAILY VASQUEZ Administration Dexamethasone 6 mg 05/18/20 23:00 05/19/20 23:06 Decadron SLOW IVP 6 mg Q24H VASQUEZ Administration Enoxaparin Sodium 40 mg 05/19/20 09:00 05/20/20 09:59 Lovenox SC 40 mg 0900 VASQUEZ Administration Famotidine 20 mg 05/20/20 09:00 05/20/20 09:59 Pepcid PO 20 mg DAILY VASQUEZ Administration Ceftriaxone Sodium 1 gm/ 100 mls @ 200 mls/hr 05/19/20 13:00 05/20/20 14:31 Sodium Chloride IVPB 100 mls 1300 VASQUEZ Administration Azithromycin 500 mg/ Sodium 250 mls @ 250 mls/hr 05/19/20 12:00 05/20/20 12: 16 Chloride IVPB 250 mls 1200 VAQSUEZ Administration Oxybutynin Chloride 10 mg 05/19/20 21:00 05/19/20 21:41 Ditropan PO 10 mg HS VASQUEZ Administration Pantoprazole Sodium 40 mg 05/19/20 21:00 05/19/20 21:42 Protonix PO 40 mg HS VASQUEZ Administration Polyethylene Glycol 17 gm 05/19/20 09:00 05/20/20 09:59 Miralax PO 17 gm DAILY VASQUEZ Administration Pramipexole Dihydrochloride 0.125 mg 05/19/20 09:00 05/20/20 09:59 Mirapex PO 0.125 mg DAILY VASQUEZ Administration Rosuvastatin Calcium 20 mg 05/19/20 21:00 05/19/20 21:42 Crestor PO 20 mg HS VASQUEZ Administration - Exam Eye: PERRL, anicteric sclera Heart: RRR, no murmur, no gallops, no rubs, normal peripheral pulses Respiratory: CTAB, no wheezes, no rales, no ronchi, normal chest expansion, no tachypnea, normal percussion Gastrointestinal: soft, non-tender, non-distended, normal bowel sounds, no palpable masses, no hepatomegaly Extremities: no cyanosis, no edema Hosp A/P (1) COVID-19 virus infection Code(s): U07.1 - COVID-19 Status: Acute (2) Left upper lobe pneumonia Code(s): J18.9 - PNEUMONIA, UNSPECIFIED ORGANISM Status: Acute (3) Hypertension Code(s): I10 - ESSENTIAL (PRIMARY) HYPERTENSION Status: Chronic (4) CAD (coronary artery disease) Code(s): I25.10 - ATHSCL HEART DISEASE OF [place] CORONARY ARTERY W/O ANG PCTRS Status: Chronic - Plan * COVID infection with pneumonia- stable. He does not have any symptoms now, and is not requiring any supplemental oxygen * HTN- blood pressure is stable * CAD- stable * Stable for discharge home
[2020-05-20 17:09] VITALS: BP 119/74; TEMP 97.4
--- NOTE | 2020-05-20 21:32 | DIS ---
DATE OF ADMISSION: 05/18/2020 DATE OF DISCHARGE: 05/20/2020 PRIMARY CARE PHYSICIAN: Vito Tang DO DISCHARGE DISPOSITION: Home. DISCHARGE DIAGNOSES: 1. COVID pneumonia. 2. Probable superimposed community acquired pneumonia. 3. Hypertension. 4. Coronary artery disease. 5. History of prostate cancer. 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 7. History of spinal stenosis. 8. Nephrolithiasis. DISCHARGE MEDICATIONS: Include; 1. Azithromycin 250 mg p.o. daily for two more days. 2. Prednisone 40 mg p.o. daily for five days. 3. Crestor 20 mg p.o. at bedtime. 4. Pramipexole 0.125 mg one tablet daily. 5. Potassium citrate 10 mEq twice a day. 6. Oxybutynin 10 mg at bedtime. 7. Omeprazole 20 mg p.o. at bedtime. 8. Folic acid 1 mg p.o. at bedtime. 9. Iron sulfate 65 mg p.o. at bedtime. 10. Vitamin D3 of 1000 units p.o. daily. 11. Aspirin 81 mg p.o. daily. 12. Norvasc 10 mg p.o. at bedtime. CODE STATUS: Full code. ALLERGIES: TO GABAPENTIN. IMAGING DONE DURING THE HOSPITAL STAY: The patient had a CT scan of the chest showing peripheral multifocal pneumonia, which could be secondary to a COVID pneumonia. HOSPITAL COURSE: Mr. Kumar is a very pleasant 69-year-old gentleman, who presented to the emergency room with complaints of chills and malaise. He denied any chest pain or shortness of breath. He had gone to the [place] [facility] initially, where they did a CT scan, which was concerning for COVID pneumonia. He was transferred to our facility and a rapid COVID test was done. It was positive and he was admitted to the hospital. He was started on IV Decadron as well as IV azithromycin and Rocephin. He was noted to improve overnight. He never required any supplemental oxygen and by the time I saw him, he was doing well. We monitored him at least one more night in the hospital and since he continued to appear well with no fever, no need for any supplemental oxygen. He had been ambulating without any difficulty. It was felt best that he could be discharged home on oral antibiotics as well as oral prednisone. He was instructed that his symptoms could worsen. He was told that if his breathing got worse or if he started to have shortness of breath, that is, or having any cough, then he can come back to the ER for re-evaluation. He was also told to self quarantine for the next 14 days and then following that to follow up with his primary care physician. Job ID: [id number]
== END 2020-05-20 16:59 | disposition home or self-care (01) | DRG 177 ==
LOC: ERS 15:19 → T4-A 17:26
PROVIDERS: ADMIT Internal Medicine; ATTEND Internal Medicine
PROC: 8E0ZXY6 Isolation (ICD-10-PCS; principal; 2020-05-18)
DX: U07.1 COVID-19 (principal); J12.89 Other viral pneumonia; C79.89 Secondary malignant neoplasm of other specified sites; I25.10 Atherosclerotic heart disease of native coronary artery without angina pectoris; I10 Essential (primary) hypertension; F17.220 Nicotine dependence, chewing tobacco, uncomplicated; M48.00 Spinal stenosis, site unspecified; N20.0 Calculus of kidney; C76.0 Malignant neoplasm of head, face and neck; Z79.899 Other long term (current) drug therapy; Z85.46 Personal history of malignant neoplasm of prostate; Z79.82 Long term (current) use of aspirin; Z88.8 Allergy status to other drugs, medicaments and biological substances
CPT/HCPCS: 36415; 80048; 81003; 81015; 82728; 83735; 85025; 85379; 86140; 87086; 99285; J0456; J0696; J1100; J1650; J3490; J7050; U0002

== ENCOUNTER 2020-08-23 08:40 | Outpatient (CLI) | payer MEDICARE, OTHER ==
--- NOTE | 2020-08-23 11:16 | MRI ---
MR OF THE PELVIS WITH AND WITHOUT CONTRAST INDICATION: 70-year-old male with prostate cancer COMPARISON: Prior MR of the prostate dated December 10, 2018. TECHNIQUE: Multiplanar, multisequence MR images were obtained of the pelvis with and without IV contr ast. 8 cc of MultiHance was utilized for the examination. The examination was reviewed on a separate [employer] 3-D workstation for multiplanar metric evaluation. FINDINGS: Prostate size: The prostate measured 5.4 x 3.5 x 2.8cm. 28.8 cc. Peripheral zone: No area of restricted diffusion is seen within the peripheral zone. Small focus of nodular T2 hypointensity is seen inferior to the left prostatic apex and likely reflec ts a mildly prominent flow void within an adjacent vein. This was present on the prior but better seen on the current examination. This area does demonstrate enhancement on the multiphase postcontras t series and is most consistent with a prominent vein. This does introduce some signal alterations on the ADC, DWI and dynamic contrast enhancement images near the left prostatic apex. Central zone: No suspicious signal abnormality or focal lesion. Neural vasculature: No evidence of neurovascular invasion Regional lymphadenopathy: None Dynamic contrast enhancement: Negative. Osseous structures: No suspicious osseous lesion is identified. Additional findings: None.. IMPRESSION: 1. PIRADS 2- Low (clinically significant cancer is unlikely to be present.)
[2020-08-23] MEDS ORDERED: Magnevist 469MG/ML 20 ML VIAL ONE (13:54)
== END 2020-08-23 08:41 | disposition home or self-care (01) ==
LOC: TBSIIMAG 08:40
PROVIDERS: ATTEND Urology
DX: C61 Malignant neoplasm of prostate (principal)
CPT/HCPCS: 72197; 82565; A9579

== ENCOUNTER 2020-08-31 11:32 | Outpatient (CLI) | payer MEDICARE, OTHER ==
--- NOTE | 2020-08-31 12:16 | RAD ---
KUB INDICATION: Abdominal pain COMPARISON: Prior KUB dated December 28, [address] of the abdomen and pelvis dated April 25, 2018 FINDINGS: Bowel gas: There is a mild amount retained stool within the colon. Lung bases: Not included in the [id number] Additional findings: There is a 3.8 and 2.9 mm calculus within the left mid kidney which is stable to the prior exam. There is a 3.8 and 3.3 mm calculus within the right mid kidney which is stable to the prior exam. No suspicious calcification is seen along the course of the renal collecting systems. There are small phleboliths within the lower pelvis which are stable. Osseous structures: There is scattered degenerative and osteoarthritic change present. No acute fract ure or subluxation demonstrated. IMPRESSION: 1. Stable bilateral nephrolithiasis.
== END 2020-08-31 11:33 | disposition home or self-care (01) ==
LOC: SCSRAD 11:32
PROVIDERS: ATTEND Family Medicine
DX: R10.9 Unspecified abdominal pain (principal); N20.0 Calculus of kidney
CPT/HCPCS: 74018

== ENCOUNTER 2022-06-11 09:02 | Outpatient (CLI) | payer MEDICARE, OTHER | END 2022-06-11 09:03 | disposition home or self-care (01) | LOC: NM 09:02 | PROVIDERS: ATTEND Radiology Radiation Oncology | DX: C61 Malignant neoplasm of prostate (principal) | CPT/HCPCS: 78306; A9503 ==

== ENCOUNTER 2022-10-02 07:16 | Day surgery (SDC) | payer MEDICARE, OTHER ==
[2022-10-02] MEDS ORDERED: Morphine 4 MG/ML VIAL ONE (07:45)
[2022-10-02] MEDS ORDERED: Ondansetron PF 4 MG/2 ML Vial ONE ×2 (07:45→09:54)
[2022-10-02 08:18] LABS: #Eosinphils 0.2 thou/uL (0.0-0.7); #Lymphocytes 1.3 thou/uL (1.20-3.40); #Monocytes 0.8 thou/uL (0.11-0.59); #Neutrophils 5.2 thou/uL (1.40-6.50); %Basophils 0.1 % (0.0-1.0); %Eosinophils 2.1 % (0.0-10.0); %Lymphocytes 17.7 % (21.0-51.0); %Monocytes 10.4 % (0.0-10.0); %Neutrophils 69.7 % (42.0-75.0); Hemoglobin 11.1 g/dL (14.0-18.0); Mean Corpuscular HGB CONC 32.6 g/dL (32.0-36.0); Mean Corpuscular Volume 92.3 fl (78.0-98.0); Mean Platelet Volume 6.7 fL (7.4-10.4); Platelet Count 178 10x3/uL (130-400); RBC Distribution Width 12.5 % (11.5-14.5); Red Blood Cell (RBC) Count 3.71 mill/uL (4.70-6.10); White Blood Cell (WBC) Count 7.5 10x3/uL (4.8-10.8)
[2022-10-02 08:28] LABS: Bacteria/HPF None Seen HPF (None Seen); Bilirubin Negative (Negative); Blood, Urine 1+ (Negative); Clarity Clear (Clear); Glucose, Urine (Dipstick) Normal (Negative); Ketone, Urine Negative (Negative); Leukocyte 25 Leu/uL (Negative); Nitrite Negative (Negative); Protein, Urine (Dipstick) 10 mg/dL (Neg-Trace); RBC/HPF 0-3 HPF (0-3); Specific Gravity, Urine 1.021 (1.002-1.036); Squamous Epithelial None Seen HPF (0-3); Urobilinogen Normal mg/dL (Less than 2)
[2022-10-02 08:44] LABS: ALT (SGPT) 21 U/L (8-55); AST (SGOT) 23 U/L (5-34); Albumin 4.1 g/dL (3.4-4.8); Alkaline Phosphatase 88 U/L (40-110); BUN (Urea Nitrogen) 32 mg/dL (8.4-25.7); Bilirubin, Total 0.9 mg/dL (0.2-1.2); Calc. Creatinine Clearance 0 mL/min (70-130); Calcium 9.2 mg/dL (7.8-10.44); Carbon Dioxide 23 mmol/L (23-31); Chloride 104 mmol/L (98-107); Estimated GFR 23; Globulin 3.4 g/dL (2.4-3.5); Glucose 94 mg/dL (83-110); Potassium 4.2 mmol/L (3.5-5.1); Protein, Total 7.5 g/dL (5.8-8.1); Sodium 137 mmol/L (136-145)
[2022-10-02 09:16] LABS: Anion Gap 14 mmol/L (10-20)
[2022-10-02] MEDS ORDERED: Fentanyl 100 MCG/2 ML VIAL ONE (09:25)
[2022-10-02] MEDS ORDERED: cefTRIAXone\\ROCEPHIN 2 GM VIAL ONE (09:32)
[2022-10-02] MEDS ORDERED: Sodium Chloride 0.9% 100 ML ONE ×2 (09:32→09:35)
[2022-10-02] MEDS ORDERED: cefTRIAXone\\ROCEPHIN 1 GM VIAL ONE (09:35)
[2022-10-02] MEDS ORDERED: Lidocaine 1% PF 5 ML VIAL ONE (09:54)
[2022-10-02] MEDS ORDERED: PHENYLEPHRINE-NS 100 MCG/ML 10 ML SYRINGE ONE (09:54)
[2022-10-02] MEDS ORDERED: PROPOFOL 200 MG/20 ML VIAL ONE (09:54)
[2022-10-02] MEDS ORDERED: Iopamidol 15 ML ONE (10:26)
[2022-10-02] MEDS ORDERED: Oxybutynin 5 MG TAB ONE (10:44)
[2022-10-02] MEDS ORDERED: Meperidine HCl/PF 25 MG/ML VIAL ONE (10:55)
[2022-10-02] MEDS ORDERED: HYDROcodone/Acetaminophen 5/325 mg Tablet ONE (12:24)
== END 2022-10-02 12:56 | disposition home or self-care (01) ==
LOC: ERS 07:16 → SDC 09:04
PROVIDERS: ATTEND Urology
PROC: 0T768DZ Dilation of Right Ureter with Intraluminal Device, Via Natural or Artificial Opening Endoscopic (ICD-10-PCS; principal; 2022-10-02)
DX: N13.2 Hydronephrosis with renal and ureteral calculous obstruction (principal); E86.0 Dehydration; N17.9 Acute kidney failure, unspecified; N18.9 Chronic kidney disease, unspecified; K21.9 Gastro-esophageal reflux disease without esophagitis; D50.9 Iron deficiency anemia, unspecified; F17.220 Nicotine dependence, chewing tobacco, uncomplicated; Z85.46 Personal history of malignant neoplasm of prostate; Z79.82 Long term (current) use of aspirin; Z79.899 Other long term (current) drug therapy; Z88.8 Allergy status to other drugs, medicaments and biological substances
CPT/HCPCS: 80053; 81003; 81015; 85025; 87086; 96374; 96375; C2617; J0696; J2175; J2270; J2405; J2704; J3010; J3490; Q9967

== ENCOUNTER 2022-10-09 07:15 | Day surgery (SDC) | payer MEDICARE, OTHER ==
[2022-10-08 09:02] VITALS: BMI 28.8
[2022-10-09] MEDS ORDERED: Fentanyl 100 MCG/2 ML VIAL ONE ×5 (09:54→13:52)
[2022-10-09] MEDS ORDERED: cefTRIAXone\\ROCEPHIN 1 GM VIAL ONE (10:00)
[2022-10-09] MEDS ORDERED: Sodium Chloride 0.9% 100 ML ONE (10:00)
[2022-10-09] MEDS ORDERED: Ondansetron PF 4 MG/2 ML Vial ONE (10:07)
[2022-10-09] MEDS ORDERED: ePHEDrine 50 MG/ML VIAL ONE (10:07)
[2022-10-09] MEDS ORDERED: PROPOFOL 200 MG/20 ML VIAL ONE (10:07)
[2022-10-09] MEDS ORDERED: PHENYLEPHRINE-NS 100 MCG/ML 10 ML SYRINGE ONE (10:07)
[2022-10-09] MEDS ORDERED: Lidocaine 1% PF 5 ML VIAL ONE (10:07)
[2022-10-09] MEDS ORDERED: Fentanyl 250 MCG/5 ML VIAL ONE (11:03)
[2022-10-09] MEDS ORDERED: HYDROcodone/Acetaminophen 5/325 mg Tablet ONE (15:16)
== END 2022-10-09 15:47 | disposition home or self-care (01) ==
LOC: SDC 07:15
PROVIDERS: ATTEND Urology
PROC: 0TC18ZZ Extirpation of Matter from Left Kidney, Via Natural or Artificial Opening Endoscopic (ICD-10-PCS; principal; 2022-10-09)
PROC: 0TC08ZZ Extirpation of Matter from Right Kidney, Via Natural or Artificial Opening Endoscopic (ICD-10-PCS; 2022-10-09)
PROC: 0T788DZ Dilation of Bilateral Ureters with Intraluminal Device, Via Natural or Artificial Opening Endoscopic (ICD-10-PCS; 2022-10-09)
PROC: 0T778DZ Dilation of Left Ureter with Intraluminal Device, Via Natural or Artificial Opening Endoscopic (ICD-10-PCS; 2022-10-09)
DX: N13.2 Hydronephrosis with renal and ureteral calculous obstruction (principal); N13.0 Hydronephrosis with ureteropelvic junction obstruction; N18.9 Chronic kidney disease, unspecified; K21.9 Gastro-esophageal reflux disease without esophagitis; Z85.46 Personal history of malignant neoplasm of prostate; Z79.82 Long term (current) use of aspirin; Z79.899 Other long term (current) drug therapy; Z88.8 Allergy status to other drugs, medicaments and biological substances
CPT/HCPCS: 52345; 52356; 74420; 82365; C1713; C1769; C2617; 88300; J0696; J2405; J2704; J3010; J3490

== ENCOUNTER 2023-10-20 13:27 | Outpatient (CLI) | payer MEDICARE, OTHER | END 2023-10-20 13:28 | disposition home or self-care (01) | LOC: BICMAMMO 13:27 | PROVIDERS: ATTEND Registered Nurse | DX: N64.4 Mastodynia (principal); R07.89 Other chest pain | CPT/HCPCS: 77066; G0279 ==

== ENCOUNTER 2024-02-11 01:53 | Inpatient (IN) | payer MEDICARE, OTHER ==
[2024-02-11] MEDS ORDERED: Acetaminophen 500 MG TAB ONE (03:31)
[2024-02-11] MEDS ORDERED: Ondansetron ODT 4 MG TAB SL PRN (06:00)
[2024-02-11] MEDS ORDERED: Acetaminophen 325 MG TAB PO PRN (06:00)
[2024-02-11] MEDS ORDERED: Ondansetron PF 4 MG/2 ML Vial IVP PRN ×2 (06:00→23:59)
[2024-02-11 06:06] LABS: #Basophils Less than 0.03 10x3/uL (0.0-0.2); %Basophils 0.4 % (0.0-1.0); %Eosinophils 3.7 % (0.0-10.0); %Monocytes 6.9 % (0.0-10.0); %Neutrophils 75.8 % (42.0-75.0); Hematocrit 32.6 % (42.0-52.0); Mean Corpuscular HGB CONC 33.3 g/dL (32.0-36.0); Mean Corpuscular Hemoglobin 31.4 pg (27.0-31.0); Mean Corpuscular Volume 94.2 fL (78.0-98.0); Mean Platelet Volume 9.5 fL (7.4-10.4); Platelet Count 126 10x3/uL (130-400); RBC Distribution Width 14.3 % (11.5-14.5); Red Blood Cell (RBC) Count 3.44 mill/uL (4.70-6.10)
[2024-02-11 06:21] LABS: ALT (SGPT) 10 U/L (8-55); AST (SGOT) 18 U/L (5-34); Albumin 3.2 g/dL (3.4-4.8); Alkaline Phosphatase 83 U/L (40-110); Anion Gap 12 mmol/L (10-20); BUN (Urea Nitrogen) 26 mg/dL (8.4-25.7); Bilirubin, Total 0.6 mg/dL (0.2-1.2); CK (CPK) 515 U/L (30-200); Calc. Creatinine Clearance 0 mL/min (70-130); Calcium 7.8 mg/dL (7.8-10.44); Carbon Dioxide 18 mmol/L (23-31); Chloride 112 mmol/L (98-107); Estimated GFR 25; Globulin 2.7 g/dL (2.4-3.5); Glucose 99 mg/dL (83-110); Potassium 3.7 mmol/L (3.5-5.1); Protein, Total 5.9 g/dL (5.8-8.1); Sodium 138 mmol/L (136-145)
[2024-02-11] MEDS ORDERED: Senokot S 8.6-50 MG TAB PO PRN (08:12)
[2024-02-11] MEDS ORDERED: Non-Formulary Item 1 EACH (Omeprazole [Omeprazole] 20 MG Capsule.Dr) PO SCH (09:00)
[2024-02-11] MEDS ORDERED: Amlodipine 5 MG TAB PO SCH (09:00)
[2024-02-11] MEDS: Pantoprazole DR 40 MG TAB PO SCH (09:22)
[2024-02-11] MEDS: Amlodipine 10 MG TAB PO SCH (09:23)
[2024-02-11] MEDS: Aspirin Chewable 81 MG TAB PO SCH (09:23)
[2024-02-11] MEDS: Heparin 5,000 UNITS/ML VIAL SC SCH (09:23)
[2024-02-11] MEDS: Sodium Chloride 0.45% 1,000 ML IV SCH (09:24)
[2024-02-11 13:32] VITALS: BMI 32.0
[2024-02-11 13:53] LABS: Campy jejuni + coli by PCR Negative (Negative); STEC Shiga Toxin 1+2 Negative (Negative); Salmonella spp. by PCR Negative (Negative); Shigella spp + EIEC by PCR Negative (Negative)
[2024-02-11] MEDS: Lactated Ringer's 1,000 ML IV SCH (14:01)
[2024-02-11] MEDS: Gabapentin 300 MG CAP PO SCH (20:37)
[2024-02-11] MEDS: Folic Acid 1 MG TAB PO SCH (20:37)
[2024-02-11] MEDS ORDERED: Non-Formulary Item 1 EACH (Gabapentin [Neurontin] 600 MG Tablet) PO SCH (21:00)
[2024-02-12] MEDS: Acetaminophen 325 MG TAB PO PRN (00:43)
[2024-02-12] MEDS: Ondansetron ODT 4 MG TAB PO PRN (00:43)
[2024-02-12 06:38] LABS: #Basophils Less than 0.03 10x3/uL (0.0-0.2); %Basophils 0.5 % (0.0-1.0); %Eosinophils 2.8 % (0.0-10.0); %Lymphocytes 30.3 % (21.0-51.0); %Monocytes 12.3 % (0.0-10.0); %Neutrophils 53.9 % (42.0-75.0); Hematocrit 30.2 % (42.0-52.0); Hemoglobin 9.9 g/dL (14.0-18.0); Mean Corpuscular HGB CONC 32.8 g/dL (32.0-36.0); Mean Corpuscular Hemoglobin 31.2 pg (27.0-31.0); Mean Corpuscular Volume 95.3 fL (78.0-98.0); Platelet Count 108 10x3/uL (130-400); RBC Distribution Width 14.2 % (11.5-14.5); Red Blood Cell (RBC) Count 3.17 mill/uL (4.70-6.10)
[2024-02-12 06:57] LABS: ALT (SGPT) 12 U/L (8-55); AST (SGOT) 21 U/L (5-34); Alkaline Phosphatase 75 U/L (40-110); Anion Gap 11 mmol/L (10-20); BUN (Urea Nitrogen) 22 mg/dL (8.4-25.7); Bilirubin, Total 0.4 mg/dL (0.2-1.2); Calc. Creatinine Clearance 39 mL/min (70-130); Calcium 7.9 mg/dL (7.8-10.44); Carbon Dioxide 20 mmol/L (23-31); Chloride 110 mmol/L (98-107); Estimated GFR 30; Globulin 2.7 g/dL (2.4-3.5); Glucose 97 mg/dL (83-110); Potassium 3.9 mmol/L (3.5-5.1); Protein, Total 5.7 g/dL (5.8-8.1); Sodium 137 mmol/L (136-145)
[2024-02-12] MEDS: Ferrous Sulfate 325 MG TAB PO SCH (08:46)
[2024-02-12] MEDS: Loratadine 10 MG TAB PO SCH (08:48)
[2024-02-12] MEDS ORDERED: Cetirizine HCl 10 MG TAB PO SCH (09:00)
[2024-02-12] MEDS ORDERED: Non-Formulary Item 1 EACH (Ferrous Sulfate [Iron] 325 MG Tablet) PO SCH (09:00)
[2024-02-12 15:07] LABS: Bacteria/HPF None Seen HPF (None Seen); Bilirubin Negative (Negative); Blood, Urine Negative (Negative); Clarity Clear (Clear); Glucose, Urine (Dipstick) Normal (Negative); Ketone, Urine Negative (Negative); Leukocyte Negative Leu/uL (Negative); Nitrite Negative (Negative); Protein, Urine (Dipstick) Negative (Neg-Trace); RBC/HPF 0-3 HPF (0-3); Specific Gravity, Urine 1.006 (1.002-1.036); Squamous Epithelial None Seen HPF (0-3); Urobilinogen Normal mg/dL (Less than 2); WBC/HPF 0-3 HPF (0-3); pH, Urine 6.5 (5.0-9.0)
[2024-02-13 10:52] LABS: #Basophils Less than 0.03 10x3/uL (0.0-0.2); %Basophils 0.2 % (0.0-1.0); %Eosinophils 4.9 % (0.0-10.0); %Lymphocytes 31.2 % (21.0-51.0); %Neutrophils 52.5 % (42.0-75.0); Hematocrit 30.8 % (42.0-52.0); Hemoglobin 10.2 g/dL (14.0-18.0); Mean Corpuscular HGB CONC 33.1 g/dL (32.0-36.0); Mean Corpuscular Hemoglobin 31.1 pg (27.0-31.0); Mean Corpuscular Volume 93.9 fL (78.0-98.0); Mean Platelet Volume 9.8 fL (7.4-10.4); Platelet Count 118 10x3/uL (130-400); RBC Distribution Width 14.1 % (11.5-14.5); Red Blood Cell (RBC) Count 3.28 mill/uL (4.70-6.10)
[2024-02-13 11:14] LABS: Anion Gap 12 mmol/L (10-20); BUN (Urea Nitrogen) 19 mg/dL (8.4-25.7); Calc. Creatinine Clearance 41 mL/min (70-130); Calcium 8.2 mg/dL (7.8-10.44); Carbon Dioxide 19 mmol/L (23-31); Chloride 111 mmol/L (98-107); Estimated GFR 32; Glucose 91 mg/dL (83-110); Potassium 4.2 mmol/L (3.5-5.1); Sodium 138 mmol/L (136-145)
[2024-02-13 14:48] VITALS: TEMP 98.3
[2024-02-13 14:54] VITALS: BP 112/72
== END 2024-02-13 15:00 | disposition home or self-care (01) | DRG 684 ==
LOC: ERS 01:53 → ERHOLD 05:48 → T4-B 07:52 → OBSVTOIN 02-12 14:58
PROVIDERS: ADMIT Internal Medicine; ATTEND Internal Medicine
DX: N17.9 Acute kidney failure, unspecified (principal); N18.32 Chronic kidney disease, stage 3b; C61 Malignant neoplasm of prostate; I12.9 Hypertensive chronic kidney disease with stage 1 through stage 4 chronic kidney disease, or unspecified chronic kidney disease; M54.50 Low back pain, unspecified; G89.29 Other chronic pain; F17.220 Nicotine dependence, chewing tobacco, uncomplicated; N20.0 Calculus of kidney; Z79.899 Other long term (current) drug therapy; Z79.82 Long term (current) use of aspirin
CPT/HCPCS: 36415; 71250; 80048; 80053; 81001; 82550; 85025; 87505; 96372; G0378; J1644; J7120; Q0162

== ENCOUNTER 2025-04-24 15:00 | Emergency (ER) | payer MEDICARE, OTHER ==
[~2025-04-24 15:00] MED LIST changes: -ISOVUE-370 76%-LOCM 1 ML ONE; +Iopamidol-370 76% 500 ML MDV (1 ML CHARGE) ONE
[2025-04-24 16:04] LABS: #Basophils 0.05 10x3/uL (0.0-0.2); #Eosinophils 0.26 10x3/uL (0.0-0.7); #Monocytes 0.68 10x3/uL (0.11-0.59); #Neutrophils 4.35 10x3/uL (1.40-6.50); %Basophils 0.7 % (0.0-1.0); %Eosinophils 3.8 % (0.0-10.0); %Lymphocytes 21.2 % (21.0-51.0); %Monocytes 10.0 % (0.0-10.0); %Neutrophils 63.7 % (42.0-75.0); Hematocrit 37.1 % (42.0-52.0); Hemoglobin 12.4 g/dL (14.0-18.0); Mean Corpuscular Hemoglobin 31.3 pg (27.0-31.0); Mean Corpuscular Volume 93.7 fL (78.0-98.0); Platelet Count 179 10x3/uL (130-400); Red Blood Cell (RBC) Count 3.96 mill/uL (4.70-6.10); White Blood Cell (WBC) Count 6.83 10x3/uL (4.8-10.8)
[2025-04-24 16:26] LABS: ALT (SGPT) 12 U/L (Less than 45); AST (SGOT) 18 U/L (11-34); Albumin 3.8 g/dL (3.1-4.5); Alkaline Phosphatase 82 U/L (40-110); Anion Gap 17 mmol/L (10-20); BUN (Urea Nitrogen) 33 mg/dL (8.4-25.7); Bilirubin, Total 0.5 mg/dL (0.3-1.2); Calc. Creatinine Clearance 0 mL/min (70-130); Calcium 9.1 mg/dL (7.8-10.44); Carbon Dioxide 18 mmol/L (23-31); Chloride 111 mmol/L (98-107); Globulin 3.6 g/dL (2.4-3.5); Glucose 129 mg/dL (83-110); Potassium 3.7 mmol/L (3.5-5.1); Sodium 142 mmol/L (136-145)
[2025-04-24 16:28] LABS: Troponin I Less than 0.010 ng/mL (< 0.028)
[2025-04-24 17:19] LABS: Lipase 32 U/L (8-78); Magnesium 2.2 mg/dL (1.6-2.6)
== END 2025-04-24 19:17 | disposition home or self-care (01) ==
LOC: ERS 15:00
DX: R07.89 Other chest pain (principal); R00.0 Tachycardia, unspecified; R10.11 Right upper quadrant pain; I25.10 Atherosclerotic heart disease of native coronary artery without angina pectoris; I12.9 Hypertensive chronic kidney disease with stage 1 through stage 4 chronic kidney disease, or unspecified chronic kidney disease; N18.9 Chronic kidney disease, unspecified; Z79.899 Other long term (current) drug therapy; Z87.891 Personal history of nicotine dependence
CPT/HCPCS: 71045; 71275; 74177; 83690; 83735; 83880; 84484; 93005; Q9967; 36415; 80053; 84443; 85025

== ENCOUNTER 2025-05-09 13:30 | Emergency (ER) | payer MEDICARE, OTHER ==
[2025-05-09 15:45] LABS: #Basophils 0.04 10x3/uL (0.0-0.2); #Eosinophils 0.17 10x3/uL (0.0-0.7); #Monocytes 0.60 10x3/uL (0.11-0.59); #Neutrophils 5.27 10x3/uL (1.40-6.50); %Basophils 0.5 % (0.0-1.0); %Eosinophils 2.2 % (0.0-10.0); %Lymphocytes 19.5 % (21.0-51.0); %Monocytes 7.9 % (0.0-10.0); %Neutrophils 69.1 % (42.0-75.0); Hematocrit 36.7 % (42.0-52.0); Hemoglobin 12.0 g/dL (14.0-18.0); Mean Corpuscular Hemoglobin 31.1 pg (27.0-31.0); Mean Corpuscular Volume 95.1 fL (78.0-98.0); Platelet Count 188 10x3/uL (130-400); Red Blood Cell (RBC) Count 3.86 mill/uL (4.70-6.10); White Blood Cell (WBC) Count 7.63 10x3/uL (4.8-10.8)
[2025-05-09 16:00] LABS: INR-International Normal Ratio 1.1; Prothrombin Time 14.7 sec (12.0-14.7)
[2025-05-09 16:02] LABS: ALT (SGPT) 17 U/L (Less than 45); AST (SGOT) 15 U/L (11-34); Albumin 3.9 g/dL (3.1-4.5); Alkaline Phosphatase 87 U/L (40-110); Anion Gap 16 mmol/L (10-20); BUN (Urea Nitrogen) 31 mg/dL (8.4-25.7); Bilirubin, Total 0.3 mg/dL (0.3-1.2); Calc. Creatinine Clearance 0 mL/min (70-130); Calcium 8.9 mg/dL (7.8-10.44); Carbon Dioxide 21 mmol/L (23-31); Chloride 109 mmol/L (98-107); Globulin 2.9 g/dL (2.4-3.5); Glucose 141 mg/dL (83-110); Lipase 22 U/L (8-78); Magnesium 2.3 mg/dL (1.6-2.6); Potassium 4.3 mmol/L (3.5-5.1); Sodium 142 mmol/L (136-145)
[2025-05-09 16:35] LABS: Bacteria/HPF None Seen HPF (None Seen); CAUTI Indications for Culture Dysuria,urgency,freq; Glucose, Urine (Dipstick) 30 mg/dL (Negative); Leukocyte Negative Leu/uL (Negative); Protein, Urine (Dipstick) 30 mg/dL (Neg-Trace); RBC/HPF 0-3 HPF (0-3); Specific Gravity, Urine 1.028 (1.002-1.036); WBC/HPF 0-3 HPF (0-3)
[2025-05-09 16:36] LABS: D-Dimer Test 0.8 mcg/mL (0.27-0.43)
[2025-05-09 16:36] LABS: Urine Culture Reflex No No
[2025-05-09] MEDS ORDERED: Famotidine 20 MG TAB ONE (17:42)
== END 2025-05-09 17:57 | disposition home or self-care (01) ==
LOC: ERS 13:30
DX: K44.9 Diaphragmatic hernia without obstruction or gangrene (principal); R07.9 Chest pain, unspecified; I25.10 Atherosclerotic heart disease of native coronary artery without angina pectoris; I10 Essential (primary) hypertension; R29.700 NIHSS score 0; Z87.891 Personal history of nicotine dependence; Z79.899 Other long term (current) drug therapy; Z79.82 Long term (current) use of aspirin
CPT/HCPCS: 71045; 74176; 80053; 81001; 83690; 83735; 83880; 84484; 85025; 85379; 85610; 93005

== ENCOUNTER 2025-05-16 18:48 | Inpatient (IN) | payer MEDICARE, OTHER ==
[2025-05-16 20:28] LABS: #Basophils 0.03 10x3/uL (0.0-0.2); #Eosinophils 0.19 10x3/uL (0.0-0.7); #Monocytes 0.67 10x3/uL (0.11-0.59); #Neutrophils 3.38 10x3/uL (1.40-6.50); %Basophils 0.5 % (0.0-1.0); %Eosinophils 3.2 % (0.0-10.0); %Lymphocytes 28.4 % (21.0-51.0); %Monocytes 11.1 % (0.0-10.0); %Neutrophils 56.1 % (42.0-75.0); Hematocrit 30.1 % (42.0-52.0); Hemoglobin 9.8 g/dL (14.0-18.0); Mean Corpuscular Hemoglobin 30.8 pg (27.0-31.0); Mean Corpuscular Volume 94.7 fL (78.0-98.0); Platelet Count 142 10x3/uL (130-400); Red Blood Cell (RBC) Count 3.18 mill/uL (4.70-6.10); White Blood Cell (WBC) Count 6.02 10x3/uL (4.8-10.8)
[2025-05-16 20:44] LABS: ALT (SGPT) 12 U/L (Less than 45); AST (SGOT) 21 U/L (11-34); Albumin 3.2 g/dL (3.1-4.5); Alkaline Phosphatase 70 U/L (40-110); Anion Gap 13 mmol/L (10-20); BUN (Urea Nitrogen) 31 mg/dL (8.4-25.7); Bilirubin, Total 0.3 mg/dL (0.3-1.2); Calc. Creatinine Clearance 0 mL/min (70-130); Calcium 8.1 mg/dL (7.8-10.44); Carbon Dioxide 19 mmol/L (23-31); Chloride 113 mmol/L (98-107); Globulin 2.4 g/dL (2.4-3.5); Glucose 101 mg/dL (83-110); Lipase 22 U/L (8-78); Potassium 4.0 mmol/L (3.5-5.1); Sodium 141 mmol/L (136-145)
[2025-05-16 22:44] LABS: Magnesium 2.1 mg/dL (1.6-2.6)
[2025-05-17] MEDS ORDERED: Senokot S 8.6-50 MG TAB PO PRN (00:06)
[2025-05-17] MEDS ORDERED: Ondansetron PF 4 MG/2 ML Vial IVP PRN (00:06)
[2025-05-17] MEDS ORDERED: Acetaminophen 325 MG TAB PO PRN (00:06)
[2025-05-17 03:03] VITALS: BMI 29.5
[2025-05-17] MEDS: Pantoprazole 40 MG VIAL IVP SCH ×2 (03:21→03:23)
[2025-05-17 04:25] LABS: #Basophils 0.04 10x3/uL (0.0-0.2); #Eosinophils 0.24 10x3/uL (0.0-0.7); #Monocytes 0.64 10x3/uL (0.11-0.59); #Neutrophils 3.55 10x3/uL (1.40-6.50); %Basophils 0.6 % (0.0-1.0); %Eosinophils 3.8 % (0.0-10.0); %Lymphocytes 27.9 % (21.0-51.0); %Monocytes 10.3 % (0.0-10.0); %Neutrophils 56.9 % (42.0-75.0); Hematocrit 30.5 % (42.0-52.0); Hemoglobin 9.7 g/dL (14.0-18.0); Mean Corpuscular Hemoglobin 30.9 pg (27.0-31.0); Mean Corpuscular Volume 97.1 fL (78.0-98.0); Platelet Count 141 10x3/uL (130-400); Red Blood Cell (RBC) Count 3.14 mill/uL (4.70-6.10); White Blood Cell (WBC) Count 6.24 10x3/uL (4.8-10.8)
[2025-05-17 05:50] LABS: Anion Gap 13 mmol/L (10-20); BUN (Urea Nitrogen) 29 mg/dL (8.4-25.7); Calc. Creatinine Clearance 26 mL/min (70-130); Calcium 8.0 mg/dL (7.8-10.44); Carbon Dioxide 20 mmol/L (23-31); Chloride 111 mmol/L (98-107); Glucose 93 mg/dL (83-110); Potassium 3.9 mmol/L (3.5-5.1); Sodium 140 mmol/L (136-145)
[2025-05-17 08:24] LABS: Bacteria/HPF None Seen HPF (None Seen); Glucose, Urine (Dipstick) Normal (Negative); Leukocyte Negative Leu/uL (Negative); Protein, Urine (Dipstick) Negative (Neg-Trace); RBC/HPF 0-3 HPF (0-3); Specific Gravity, Urine 1.016 (1.002-1.036); WBC/HPF 0-3 HPF (0-3)
[2025-05-17] MEDS: Pantoprazole 40 MG DR.TAB PO SCH (09:30)
[2025-05-17] MEDS: Senokot S 8.6-50 MG TAB PO SCH (09:31)
[2025-05-17] MEDS: Memantine 5 MG TAB PO SCH (09:31)
[2025-05-17] MEDS: Folic Acid/Vit B Comp W-C PO SCH (09:32)
[2025-05-17 10:11] LABS: #Basophils 0.04 10x3/uL (0.0-0.2); #Eosinophils 0.18 10x3/uL (0.0-0.7); #Monocytes 0.51 10x3/uL (0.11-0.59); #Neutrophils 3.39 10x3/uL (1.40-6.50); %Basophils 0.7 % (0.0-1.0); %Eosinophils 3.3 % (0.0-10.0); %Lymphocytes 23.1 % (21.0-51.0); %Monocytes 9.4 % (0.0-10.0); %Neutrophils 62.8 % (42.0-75.0); Hematocrit 30.2 % (42.0-52.0); Hemoglobin 9.6 g/dL (14.0-18.0); Mean Corpuscular Hemoglobin 30.7 pg (27.0-31.0); Mean Corpuscular Volume 96.5 fL (78.0-98.0); Platelet Count 135 10x3/uL (130-400); Red Blood Cell (RBC) Count 3.13 mill/uL (4.70-6.10); White Blood Cell (WBC) Count 5.41 10x3/uL (4.8-10.8)
[2025-05-17] MEDS: Gabapentin 300 MG CAP PO SCH (15:23)
[2025-05-17] MEDS: Nitroglycerin 0.4 MG TAB (25 Tab Bottle) SL SCH (17:03)
[2025-05-17] MEDS: Calcium Carbonate 500 MG ChewTAB PO PRN (17:10)
[2025-05-17] MEDS: Cholecalciferol 1,000 UNITS (25 MCG) TAB PO SCH (20:50)
[2025-05-18 04:31] LABS: #Basophils 0.04 10x3/uL (0.0-0.2); #Eosinophils 0.25 10x3/uL (0.0-0.7); #Monocytes 0.61 10x3/uL (0.11-0.59); #Neutrophils 3.06 10x3/uL (1.40-6.50); %Basophils 0.7 % (0.0-1.0); %Eosinophils 4.5 % (0.0-10.0); %Lymphocytes 27.7 % (21.0-51.0); %Monocytes 11.0 % (0.0-10.0); %Neutrophils 55.4 % (42.0-75.0); Hematocrit 30.6 % (42.0-52.0); Hemoglobin 9.7 g/dL (14.0-18.0); Mean Corpuscular Hemoglobin 30.9 pg (27.0-31.0); Mean Corpuscular Volume 97.5 fL (78.0-98.0); Platelet Count 140 10x3/uL (130-400); Red Blood Cell (RBC) Count 3.14 mill/uL (4.70-6.10); White Blood Cell (WBC) Count 5.53 10x3/uL (4.8-10.8)
[2025-05-18 04:48] LABS: Anion Gap 11 mmol/L (10-20); BUN (Urea Nitrogen) 25 mg/dL (8.4-25.7); Calc. Creatinine Clearance 25 mL/min (70-130); Calcium 8.2 mg/dL (7.8-10.44); Carbon Dioxide 23 mmol/L (23-31); Chloride 110 mmol/L (98-107); Glucose 96 mg/dL (83-110); Potassium 4.1 mmol/L (3.5-5.1); Sodium 140 mmol/L (136-145)
[2025-05-18] MEDS ORDERED: Nitroglycerin 0.4 MG TAB (25 Tab Bottle) SL PRN (07:32)
[2025-05-18] MEDS ORDERED: Albuterol 200 PUFF (6.7GM INHALER) INH PRN (07:32)
[2025-05-18] MEDS ORDERED: Melatonin 3 MG TAB PO PRN (07:44)
[2025-05-18] MEDS: Aspirin Chewable 81 MG TAB PO SCH (09:58)
[2025-05-18] MEDS: Memantine 5 MG TAB PO SCH (09:59)
[2025-05-18] MEDS: Ferrous Sulfate 325 MG TAB PO SCH (09:59)
[2025-05-18] MEDS: Pantoprazole 40 MG DR.TAB PO SCH (09:59)
[2025-05-18] MEDS: EPOETIN ALFA-EPBX (ESRD) 10,000 UNITS/ML VIAL SC SCH (15:37)
[2025-05-19 04:24] LABS: Anion Gap 9 mmol/L (10-20); BUN (Urea Nitrogen) 32 mg/dL (8.4-25.7); Calc. Creatinine Clearance 26 mL/min (70-130); Calcium 8.3 mg/dL (7.8-10.44); Carbon Dioxide 20 mmol/L (23-31); Glucose 92 mg/dL (83-110); Iron 53 ug/dL (65-175); Iron Binding Capacity, Total 186 mcg/dL (261-462); Potassium 4.4 mmol/L (3.5-5.1); Sodium 138 mmol/L (136-145)
[2025-05-19 04:47] LABS: Chloride 108 mmol/L (98-107)
[2025-05-20 04:24] LABS: #Basophils 0.05 10x3/uL (0.0-0.2); #Eosinophils 0.32 10x3/uL (0.0-0.7); #Monocytes 0.75 10x3/uL (0.11-0.59); #Neutrophils 3.55 10x3/uL (1.40-6.50); %Basophils 0.8 % (0.0-1.0); %Eosinophils 5.2 % (0.0-10.0); %Lymphocytes 23.2 % (21.0-51.0); %Monocytes 12.1 % (0.0-10.0); %Neutrophils 57.2 % (42.0-75.0); Hematocrit 32.0 % (42.0-52.0); Hemoglobin 10.5 g/dL (14.0-18.0); Mean Corpuscular Hemoglobin 30.9 pg (27.0-31.0); Mean Corpuscular Volume 94.1 fL (78.0-98.0); Platelet Count 155 10x3/uL (130-400); Red Blood Cell (RBC) Count 3.40 mill/uL (4.70-6.10); White Blood Cell (WBC) Count 6.20 10x3/uL (4.8-10.8)
[2025-05-20 04:51] LABS: Anion Gap 12 mmol/L (10-20); BUN (Urea Nitrogen) 31 mg/dL (8.4-25.7); Calc. Creatinine Clearance 26 mL/min (70-130); Calcium 8.4 mg/dL (7.8-10.44); Carbon Dioxide 22 mmol/L (23-31); Chloride 107 mmol/L (98-107); Glucose 101 mg/dL (83-110); Potassium 3.9 mmol/L (3.5-5.1); Sodium 137 mmol/L (136-145)
[2025-05-21 04:34] LABS: #Basophils 0.04 10x3/uL (0.0-0.2); #Eosinophils 0.26 10x3/uL (0.0-0.7); #Monocytes 0.71 10x3/uL (0.11-0.59); #Neutrophils 4.00 10x3/uL (1.40-6.50); %Basophils 0.6 % (0.0-1.0); %Eosinophils 3.9 % (0.0-10.0); %Lymphocytes 23.5 % (21.0-51.0); %Monocytes 10.6 % (0.0-10.0); %Neutrophils 60.1 % (42.0-75.0); Hematocrit 33.0 % (42.0-52.0); Hemoglobin 10.6 g/dL (14.0-18.0); Mean Corpuscular Hemoglobin 31.1 pg (27.0-31.0); Mean Corpuscular Volume 96.8 fL (78.0-98.0); Platelet Count 164 10x3/uL (130-400); Red Blood Cell (RBC) Count 3.41 mill/uL (4.70-6.10); White Blood Cell (WBC) Count 6.67 10x3/uL (4.8-10.8)
[2025-05-21 04:55] LABS: Anion Gap 14 mmol/L (10-20); BUN (Urea Nitrogen) 27 mg/dL (8.4-25.7); Calc. Creatinine Clearance 25 mL/min (70-130); Calcium 8.6 mg/dL (7.8-10.44); Carbon Dioxide 21 mmol/L (23-31); Chloride 106 mmol/L (98-107); Glucose 88 mg/dL (83-110); Potassium 4.0 mmol/L (3.5-5.1); Sodium 137 mmol/L (136-145)
[2025-05-21] MEDS: Guaifenesin DM 100-10/5 ML UDCUP PO PRN (14:15)
[2025-05-21 20:26] VITALS: BP 143/92; TEMP 98.3
== END 2025-05-21 20:40 | disposition swing bed (61) | DRG 312 ==
LOC: ERS 18:48 → ERHOLD 05-17 00:06 → PCU 05-17 02:19 → OBSVTOIN 05-18 12:41
PROVIDERS: ADMIT Student in an Organized Health Care Education/Training Program; ATTEND Hospitalist
DX: I95.2 Hypotension due to drugs (principal); N18.4 Chronic kidney disease, stage 4 (severe); N17.9 Acute kidney failure, unspecified; F03.A4 Unspecified dementia, mild, with anxiety; F03.A3 Unspecified dementia, mild, with mood disturbance; E78.5 Hyperlipidemia, unspecified; I12.9 Hypertensive chronic kidney disease with stage 1 through stage 4 chronic kidney disease, or unspecified chronic kidney disease; C61 Malignant neoplasm of prostate; D63.1 Anemia in chronic kidney disease; E86.0 Dehydration; G47.33 Obstructive sleep apnea (adult) (pediatric); Z86.73 Personal history of transient ischemic attack (TIA), and cerebral infarction without residual deficits; I25.119 Atherosclerotic heart disease of native coronary artery with unspecified angina pectoris; Z87.891 Personal history of nicotine dependence; M48.061 Spinal stenosis, lumbar region without neurogenic claudication; Z98.890 Other specified postprocedural states; Z87.442 Personal history of urinary calculi; Z85.828 Personal history of other malignant neoplasm of skin; Z79.82 Long term (current) use of aspirin; Z79.51 Long term (current) use of inhaled steroids; Z79.899 Other long term (current) drug therapy
CPT/HCPCS: 36415; 71275; 74176; 80048; 80053; 81001; 82728; 83540; 83550; 83605; 83690; 83735; 83880; 84443; 84484; 85025; 93005; 96374; 96375; 97139; G0378; J2270; J2470; J7030; J7120; Q5105; Q9967

== ENCOUNTER 2025-06-17 19:29 | Emergency (ER) | payer MEDICARE, OTHER ==
[2025-06-17 20:35] LABS: #Basophils 0.03 10x3/uL (0.0-0.2); #Eosinophils 0.17 10x3/uL (0.0-0.7); #Monocytes 0.61 10x3/uL (0.11-0.59); #Neutrophils 3.29 10x3/uL (1.40-6.50); %Basophils 0.5 % (0.0-1.0); %Eosinophils 3.0 % (0.0-10.0); %Lymphocytes 28.0 % (21.0-51.0); %Monocytes 10.7 % (0.0-10.0); %Neutrophils 57.5 % (42.0-75.0); Hematocrit 35.4 % (42.0-52.0); Hemoglobin 11.1 g/dL (14.0-18.0); Mean Corpuscular Hemoglobin 31.1 pg (27.0-31.0); Mean Corpuscular Volume 99.2 fL (78.0-98.0); Platelet Count 165 10x3/uL (130-400); Red Blood Cell (RBC) Count 3.57 mill/uL (4.70-6.10); White Blood Cell (WBC) Count 5.72 10x3/uL (4.8-10.8)
[2025-06-17 20:56] LABS: ALT (SGPT) 16 U/L (Less than 45); AST (SGOT) 24 U/L (11-34); Albumin 3.5 g/dL (3.1-4.5); Alkaline Phosphatase 71 U/L (40-110); Anion Gap 17 mmol/L (10-20); BUN (Urea Nitrogen) 20 mg/dL (8.4-25.7); Bilirubin, Total 0.4 mg/dL (0.3-1.2); Calc. Creatinine Clearance 0 mL/min (70-130); Calcium 8.7 mg/dL (7.8-10.44); Carbon Dioxide 22 mmol/L (23-31); Chloride 109 mmol/L (98-107); Globulin 2.8 g/dL (2.4-3.5); Glucose 91 mg/dL (83-110); Potassium 4.1 mmol/L (3.5-5.1); Sodium 144 mmol/L (136-145)
[2025-06-17 23:32] LABS: Bacteria/HPF None Seen HPF (None Seen); CAUTI Indications for Culture Pelvic or flank pain; Glucose, Urine (Dipstick) Normal (Negative); Leukocyte Negative Leu/uL (Negative); Protein, Urine (Dipstick) Negative (Neg-Trace); RBC/HPF 0-3 HPF (0-3); Specific Gravity, Urine 1.012 (1.002-1.036); WBC/HPF None Seen HPF (0-3)
[2025-06-17 23:35] LABS: INR-International Normal Ratio 1.0; Prothrombin Time 13.6 sec (12.0-14.7)
[2025-06-17 23:36] LABS: PTT 33.3 sec (22.9-36.1)
[2025-06-17 23:37] LABS: D-Dimer Test 1.41 mcg/mL (0.27-0.43)
[2025-06-17 23:40] LABS: Urine Culture Reflex No No
[2025-06-18] MEDS ORDERED: Acetaminophen 500 MG TAB ONE (01:13)
[2025-06-18] MEDS ORDERED: Furosemide 40 MG (4 mL) VIAL ONE (06:04)
[2025-06-18] MEDS ORDERED: Iopamidol-370 76% 500 ML MDV (1 ML CHARGE) ONE (10:04)
== END 2025-06-18 06:21 | disposition home or self-care (01) ==
LOC: ERS 19:29
DX: R07.9 Chest pain, unspecified (principal); I13.0 Hypertensive heart and chronic kidney disease with heart failure and stage 1 through stage 4 chronic kidney disease, or unspecified chronic kidney disease; I50.9 Heart failure, unspecified; N18.4 Chronic kidney disease, stage 4 (severe); I25.10 Atherosclerotic heart disease of native coronary artery without angina pectoris; Z86.73 Personal history of transient ischemic attack (TIA), and cerebral infarction without residual deficits; Z87.891 Personal history of nicotine dependence
CPT/HCPCS: 36415; 71045; 71275; 80053; 81001; 83880; 84484; 85025; 85379; 85610; 85730; 93005; J1940; Q9967

== ENCOUNTER 2025-06-20 14:16 | Emergency (ER) | payer MEDICARE, OTHER ==
[2025-06-20 17:59] LABS: #Basophils Less than 0.03 10x3/uL (0.0-0.2); #Eosinophils 0.23 10x3/uL (0.0-0.7); #Monocytes 0.56 10x3/uL (0.11-0.59); #Neutrophils 3.19 10x3/uL (1.40-6.50); %Basophils 0.4 % (0.0-1.0); %Eosinophils 4.2 % (0.0-10.0); %Lymphocytes 27.0 % (21.0-51.0); %Monocytes 10.1 % (0.0-10.0); %Neutrophils 57.8 % (42.0-75.0); Hematocrit 35.3 % (42.0-52.0); Hemoglobin 11.0 g/dL (14.0-18.0); Mean Corpuscular Hemoglobin 31.3 pg (27.0-31.0); Mean Corpuscular Volume 100.3 fL (78.0-98.0); Platelet Count 158 10x3/uL (130-400); Red Blood Cell (RBC) Count 3.52 mill/uL (4.70-6.10); White Blood Cell (WBC) Count 5.52 10x3/uL (4.8-10.8)
[2025-06-20 18:17] LABS: ALT (SGPT) 17 U/L (Less than 45); AST (SGOT) 22 U/L (11-34); Albumin 3.4 g/dL (3.1-4.5); Alkaline Phosphatase 77 U/L (40-110); Anion Gap 14 mmol/L (10-20); BUN (Urea Nitrogen) 23 mg/dL (8.4-25.7); Bilirubin, Total 0.3 mg/dL (0.3-1.2); Calc. Creatinine Clearance 0 mL/min (70-130); Calcium 8.7 mg/dL (7.8-10.44); Carbon Dioxide 19 mmol/L (23-31); Chloride 112 mmol/L (98-107); Globulin 2.8 g/dL (2.4-3.5); Glucose 105 mg/dL (83-110); Potassium 4.4 mmol/L (3.5-5.1); Sodium 141 mmol/L (136-145)
[2025-06-20 18:32] LABS: Bacteria/HPF None Seen HPF (None Seen); CAUTI Indications for Culture Pelvic or flank pain; Glucose, Urine (Dipstick) Normal (Negative); Leukocyte Negative Leu/uL (Negative); Protein, Urine (Dipstick) 20 mg/dL (Neg-Trace); RBC/HPF 0-3 HPF (0-3); Specific Gravity, Urine 1.018 (1.002-1.036); WBC/HPF 0-3 HPF (0-3)
[2025-06-20 18:34] LABS: Urine Culture Reflex No No
== END 2025-06-20 19:05 | disposition home or self-care (01) ==
LOC: ERS 14:16
DX: I67.9 Cerebrovascular disease, unspecified (principal); R13.10 Dysphagia, unspecified; I25.10 Atherosclerotic heart disease of native coronary artery without angina pectoris; I10 Essential (primary) hypertension; Z79.899 Other long term (current) drug therapy; Z79.82 Long term (current) use of aspirin; Z87.891 Personal history of nicotine dependence
CPT/HCPCS: 36415; 71045; 80053; 81001; 85025

== ENCOUNTER 2025-08-09 08:58 | Day surgery (SDC) | payer MEDICARE, OTHER ==
[2025-08-09] MEDS: INCLISIRAN SODIUM 284 MG/1.5 ML SYRINGE SQ SCH (09:50)
[2025-08-09 10:32] VITALS: BP 158/87; TEMP 97.6
== END 2025-08-09 11:09 | disposition home or self-care (01) ==
LOC: ONC/OP 08:58
PROVIDERS: ATTEND Internal Medicine Cardiovascular Disease
DX: E78.019 Familial hypercholesterolemia, unspecified (principal); I11.9 Hypertensive heart disease without heart failure; I25.10 Atherosclerotic heart disease of native coronary artery without angina pectoris; I65.23 Occlusion and stenosis of bilateral carotid arteries
CPT/HCPCS: 96372; J1306